=== PATIENT | female | born 1990 | race African-American/Black ===

== ENCOUNTER 2024-10-06 08:08 | Outpatient (AMB) | payer OTHER, SELFPAY ==
[2024-10-06 08:12] VITALS: BP 154/102; PULSE 81; RESP 18; TEMP 36.3; O2SAT 99; BMI 35.8
--- NOTE | 2024-10-06 08:12 | MHC.PC.OV ---
Vital Signs 10/06/24 08:12 10/06/24 09:02 Height 5 ft 4.5 in Weight 211 lb 9.6 oz BMI 35.8 BP 154/102 H 140/88 H Blood Pressure Location Lt brachial Lt brachial Position Sitting Sitting Respiration 18 Pulse 81 Pulse Source Pulse Oximeter Temp 97.3 F Temp Source Temporal Artery Scan Pulse Oximetry (%) 99 Oxygen Delivery Method Room Air Intake Visit Reasons: establish care Intake Note: Patient is a new patient here to establish care. Transferring care from [facility] in [place], [place]. Medical records have been requested and have not been received. Sole Trimmer Required: No Accompanied by: Self / Same As Patient Allergies No Known Allergies Allergy (Verified 10/06/24 08:29) Medication List - Last Reconciled 10/06/24 by Jelena Fletcher PA-C amlodipine 10 mg PO DAILY hydrochlorothiazide 25 mg PO DAILY Tobacco use date assessed: 10/06/24 Dental Screening Dental Screen Date: 10/06/24 Did you have a dental visit in the last 12 months?: Yes Did you have a dental problem in the last 6 months where you did not have access to dental care?: No Was dental information given to patient?: Patient has dentist HPI establish care HPI Details 34-year-old female coming to the office for the 1st time. Presenting with concerns regarding her essential hypertension management due to disrupted follow-up appointments. She is prescribed amlodipine and hydrochlorothiazide and notes high blood pressure when her regimen is not strictly followed. She continues to consume tobacco, providing a quarter pack a day, despite desiring cessation. Insomnia is noted as a persistent issue, unalleviated by current vtto-joh-zztaoxr pharmacotherapy. The condition is potentially contributing to her elevated blood pressure readings. The patient's body mass index reflects her concerns regarding weight gain, related in part to a prior history of Depo-Provera usage. She wishes to engage in nutritional counseling to aid in her goals of weight reduction. The patient screens positive for depression, attributing this to multiple economic stressors as a single parent. She intends to explore therapeutic options moving forward. [facility] Jul 2023 every 3 years due to Fhx and polyps through [facility] Surgical History Hx of wisdom tooth extraction Hx of section Family History Mother Colon cancer FHx: colon cancer Father No problems noted. Son No problems noted. Daughter No problems noted. 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 1. Little interest or pleasure in doing things: several days 2. Feeling down, depressed, or hopeless: not at all 3. Trouble falling or staying asleep, or sleeping too much: nearly every day 4. Feeling tired or having little energy: several days 5. Poor appetite or overeating: nearly every day 6. Feeling bad about yourself - or that you are a failure or have let yourself or your family down: several days 7. Trouble concentrating on things, such as reading the newspaper or watching television: not at all 8. Moving or speaking so slowly that other people could have noticed. Or the opposite - being so fidgety or restless that you have been moving around a lot more than usual: not at all 9. Thoughts that you would be better off or of hurting yourself in some way: not at all Total score: 9 Depression Screening Interpretation: Positive (referral to counseling) Depression Screening Follow-up: Existing condition Depression Screening Done: Yes 35940 - PHQ-9 Billing: Yes Source: Developed by Drs. Yobany Corbin, Melisa Damian, Anoop Reardon and colleagues, with an educational nelly from [employer]. Thrive Questionnaire Date Thrive assessed: 10/06/24 I am a: Patient What is your living situation today?: I have a steady place to live Within the past 12 months, did the food you bought not last and you didn't have the money to get more?: Never true Within the past 12 months, did you worry whether your food would run out before you got money to buy more?: Never true Do you have trouble paying for medicines?: No Do you have trouble getting transportation to medical appointments?: No Do you have trouble paying your heating and electricity bill?: No Do you have trouble taking care of your child, family member or friend?: No Do you have trouble with day-to-day activities such as bathing, preparing meals, shopping, managing finances, etc.?: No Are you currently unemployed and looking for a job?: No Are you interested in more education?: No Please select the resources that you would like help with: None Currently or been in a relationship where the following occur: No concerns reported THRIVE Score: 0 AUDIT C Alcohol Use Questionnaire (AUDIT-C) 1. How often do you have a drink containing alcohol?: 2-3 times a week 2. How many drinks containing alcohol do you have on a typical day when you are drinking?: 5 or 6 3. How often do you have six or more drinks on one occasion?: Less than monthly Total Score: 6 Score Reviewed/Action Taken: Yes KERRI-7 AMB Questionnaire KERRI-7 Date KERRI - 7 assessed: 10/06/24 Feeling nervous, anxious, or on edge: 0 = Not at all Not being able to stop or control worryin = Nearly every day Worrying too much about different things: 3 = Nearly every day Trouble relaxin = Nearly every day Being so restless that it is hard to sit still: 0 = Not at all Becoming easily annoyed or irritable: 0 = Not at all Feeling afraid as if something awful might happen: 0 = Not at all Total KERRI-7 score (0-4 normal; 5-9 mild; 10-14 moderate; 15-21 severe): 9 Source: Developed by Drs. Yobany Corbin, Melisa Damian, Anoop Reardon and colleagues, with an educational nelly from [employer]. KERRI-7 Assessment Billing KERRI-7 Assessment Tool: KERRI-7 Assessment 60128 Review of Systems Const Details: insomnia Denies body aches, Denies chills, Denies fever(s), Reports headache(s) and Denies poor appetite Eyes Reports no additional complaints ENT Denies dizziness and Reports headache(s) Card Denies chest pain, Denies syncope, Denies lightheadedness and Denies dyspnea Resp Denies cough and Denies dyspnea GI Denies diarrhea, Denies nausea and Denies vomiting Reports no additional complaints Musc Reports no additional complaints Skin/Breast Reports system reviewed and no additional complaints, except as documented Neuro Denies dizziness, Denies syncope and Reports headache(s) Psych Reports no additional complaints Physical exam (Primary Care) Vital Signs: Last Vital Signs Temp 97.3 F 10/06/24 08:12 Pulse 81 10/06/24 08:12 Resp 18 10/06/24 08:12 BP 140/88 H 10/06/24 09:02 Pulse Ox 99 10/06/24 08:12 Oxygen Delivery Method Room Air 10/06/24 08:12 BMI result Body Mass Index 35.8 Tobacco/Smoking Status: Tobacco use Status Tobacco use date assessed 10/06/24 10/06/24 08:31 Patient Tobacco Use Status Current everyday Tobacco 10/06/24 08:31 Tobacco use type Cigarette 10/06/24 08:31 e-Cigarette/Vaping Use Currently Using (THC Vape) 10/06/24 08:31 Are you ready to quit: Yes Tobacco cessation counseling provided: Yes Items discussed: Nicotine replacement Relapse Prevention: weight gain after smoking is common and discussed dietary, exercise and/or lifestyle changes Number of minutes spent counselin CPT code: 67864 - 4-10 Minutes PHQ-9: PHQ-9 Score PHQ-9: Total score 9 10/06/24 08:48 Depression Screening Interpretation: Positive (referral to counseling) Depression Screening Follow-up: Existing condition Thrive Assessment: Date of Thrive Assessment Date Thrive assessed 10/06/24 10/06/24 08:39 Currently or been in a relationship where the following occur: No concerns reported Const General: cooperative, healthy appearing, comfortable and no acute distress Orientation/consciousness: patient oriented x3 HENMT Head: Yes normocephalic Ears: hearing grossly normal bilaterally General nose exam: Normal external nose present Eyes General: appearance normal, both eyes and all related structures Conjunctivae: conjunctivae normal Neck Neck: Yes full ROM and Yes no lymphadenopathy Resp Effort & Inspection: normal respiratory effort Auscultation: clear to auscultation bilaterally, no crackles, no rales, no rhonchi and no wheezes Cardio Rate: regular rate Rhythm: regular rhythm Skin General skin exam: no rashes or lesions noted Neuro General: patient oriented x3 Gait exam (Neuro): Normal gait present Extrem General: Yes normal to inspection, Yes full ROM and No edema Psych Affect: normal affect Attitude: cooperative Insight: Good insight present (Psych) Judgement: Good judgement present (Psych) Coding Level of Care Code New Pt Level 4 (78792) Diagnoses Tobacco use disorder F17.200 Hypertension I10 Cervical cancer screening Z12.4 Anxiety F41.9 Depression F32.A Insomnia G47.00 Obesity (BMI 30-39.9) E66.9 Additional Codes KERRI-7 Assessment Billing - KERRI-7 Assessment Tool: KERRI-7 Assessment 66485 ([id number]) PHQ-9 - 44993 - PHQ-9 Billing: Yes ([id number]) Vital Signs *Quality* - CPT code: 26476 - 4-10 Minutes ([id number]) Assessment & Plan Assessment & Plan (1) Tobacco use disorder: Code(s): F17.200 - Nicotine dependence, unspecified, uncomplicated Category: Medical Plan: Smoking cigarettes and the use of tobacco can be harmful. We discussed the importance of stopping and options to aid in smoking cessation. Prescription sent for nicotine lozenges today (2) Hypertension: Code(s): I10 - Essential (primary) hypertension Category: Medical Plan: Continue on current blood pressure medication. Avoid salt intake and encourage healthy diet and regular exercise. Blood pressure mildly elevated in the office today 140/88 when retaken patient has not yet taken her blood pressure medications. Advised to follow up in 2 months and bring log to next visit of blood pressures at home. Also advised patient to reach out if blood pressures exceed 140/90 at home (3) Cervical cancer screening: Comment: [facility] past Code(s): Z12.4 - Encounter for screening for malignant neoplasm of cervix Category: Medical Plan: Patient has been [facility] and believes she is up-to-date. Referral was placed to gynecology today (4) Anxiety: Code(s): F41.9 - Anxiety disorder, unspecified Category: Medical Plan: Patient is declining medical management at this time and would like to try counseling. She has tried counseling in the past but did find it difficult to attend as she had financial restraints. (5) Depression: Code(s): F32.A - Depression, unspecified Category: Medical Plan: Patient is declining medical management at this time and would like to try counseling. She has tried counseling in the past but did find it difficult to attend as she had financial restraints. (6) Insomnia: Code(s): G47.00 - Insomnia, unspecified Category: Medical Plan: Patient having difficulty sleeping she has been using Tylenol PM plan to initiate hydroxyzine 25 mg at bedtime. Follow up in 2 months (7) Obesity (BMI 30-39.9): Code(s): E66.9 - Obesity, unspecified Category: Medical Plan: Healthy diet and regular exercise is encouraged. Patient was counseled today on the risks and benefits of GLP-1 injections as well as the dosing schedule. She has no family history or personal history of thyroid disease and no gallbladder disease. Discussed with the patient the potential GI side effects of this medication. Plan to have repeat blood work after one month of therapy to monitor kidney and liver function before increasing the dose of this medication. Follow up in 2 months for a weight check. Referral was sent to nutrition today and Kranthi sent to pharmacy. Advised patient if the medication is not covered by her insurance we will seek the nutritional route and can consider referral to weight management. She is not interested in weight loss surgery at this time Plan The patient's essential hypertension will continue to be managed with her existing regimen of amlodipine and hydrochlorothiazide, with potential adjustments following home blood pressure monitoring feedback. To support her intention to quit smoking, a regimen of 4 mg nicotine lozenges has been provided. Hydroxyzine 25 mg will be employed to manage sleep disturbances and adjunctively moderate anxiety manifestations. Nutritional counseling referrals have been made to facilitate weight management, complemented by potential pharmacotherapy should insurance permit its integration. The patient's mental health, particularly her depression, warrants a continued dialogue about therapeutic options, both therapeutic and pharmacological, as we navigate her insurance constraints. I also ordered for updated blood work and plan to follow up in 2 months. This note was constructed using voice recognition software. While every effort has been made to ensure accuracy and rehab care assistant, still areas may have been included sometimes these areas may affect the content or meeting of the given symptoms. Total time spent caring for the patient today was 30 minutes. This includes time spent before the visit reviewing the chart, time spent during the visit, and time spent after the visit and documentation. Patient was informed and verbally consented to the use of an ambient scribe for clinic note documentation during this visit. Orders: Orders Comprehensive Met. Panel Today Z00.00 - Encounter for general adult medical examination without abnormal findings Free T4 (Free Thyroxine) Today Z00.00 - Encounter for general adult medical examination without abnormal findings TSH reflex Free T4 Today Z00.00 - Encounter for general adult medical examination without abnormal findings Vitamin D 25-OH Total Today Z00.00 - Encounter for general adult medical examination without abnormal findings Lipid Panel Today Z13.220 - Encounter for screening for lipoid disorders Complete Blood Count Auto Diff Today Z00.00 - Encounter for general adult medical examination without abnormal findings Vitamin B12 and Folate Today Z00.00 - Encounter for general adult medical examination without abnormal findings Referrals OPTICAL STORE MANAGER Referral Z12.4 - Encounter for screening for malignant neoplasm of cervix Counseling Referral F32.A - Depression, unspecified, F41.9 - Anxiety disorder, unspecified Nutrition/Dietitian Referral E66.9 - Obesity, unspecified, I10 - Essential (primary) hypertension Medications: New nicotine (polacrilex) 4 mg buccal Q8H PRN 72 ea 1RF nicotine cravings amlodipine 10 mg PO DAILY 90 tabs 2RF hydrochlorothiazide 25 mg PO DAILY 90 tabs 2RF hydroxyzine HCl 25 mg PO BEDTIME 30 tabs 1RF semaglutide (weight loss) (Kranthi) administer weeks 1 through 4 of therapy 0.25 mg (0.5 mL) subcut QWEEK 2 mL 0RF
--- OUTSIDE RECORDS SUMMARY | 2024-10-06 08:22 | XMS_ITS | Patient Health Record ---
Author Organization [facility] Address [address] [place] [address] Care Team Providers Care Associate Merchandiser Name Role Phone Tano Nguyen Unavailable [phone] Allergies No Known Allergies Reason For Referral No Information Social History Tobacco Use: Social History Observation Description Date Details (start date - stop date) Current Smoker 06/22/2005 - NA Tobacco Use/Smoking Question Answer Notes Are you a: current smoker When did you start smoking? 06/22/2005 Alcohol Screen Question Answer Notes Did you have a drink contain ing alcohol in the past year? Yes How often did you have a dri nk containing alcohol in the past year? 2 to 4 times a month (2 points) Points 2 Interpretation Negative Tobacco use other than smoking: Question Answer Notes Are you an other tobacco user? No Plan Of Treatment Pending Test Test Name Order Date X ray : Foot, left 3V 05/23/2021 Insurance Providers Payer Name Payer Address Payer Phone Subscriber Number Group Number Insured Name Patient Relationship to Insured Coverage Start Date Coverage End Date [facility] [address] [facility] [place] [address] [id number] Randall Bhandari Self - patient is the insured Medical (General) History Medical History History ICD Code Chicken pox Surgical History Surgery Date(Month/Year) 05/08/09 11/27/15
[2024-10-06 09:02] VITALS: BP 140/88
== END 2024-10-06 09:08 | disposition home or self-care (01) ==
DX: I10 Essential (primary) hypertension (principal); F17.210 Nicotine dependence, cigarettes, uncomplicated; E66.9 Obesity, unspecified; Z68.35 Body mass index [BMI] 35.0-35.9, adult; F41.9 Anxiety disorder, unspecified; F32.A Depression, unspecified; G47.00 Insomnia, unspecified

== ENCOUNTER → 2024-10-06 08:08 | Outpatient (BNVA) | payer OTHER, SELFPAY | DX: I10 Essential (primary) hypertension (principal); F41.9 Anxiety disorder, unspecified; F32.A Depression, unspecified; G47.00 Insomnia, unspecified; E66.9 Obesity, unspecified; Z68.35 Body mass index [BMI] 35.0-35.9, adult; F17.210 Nicotine dependence, cigarettes, uncomplicated | CPT/HCPCS: 96127 ==

== ENCOUNTER 2024-11-23 12:27 | Outpatient (AMB) | payer OTHER, SELFPAY ==
[2024-11-23 12:41] VITALS: BMI 34.8
--- NOTE | 2024-11-23 12:41 | A.OFFVIS_ITS ---
VS Expanded 11/23/24 12:41 11/23/24 12:48 Height 5 ft 4.5 in 5 ft 4 in Weight 205 lb 14.588 oz 206 lb BMI 34.8 35.4 Intake Visit Reasons: Obesity, unspecified Allergies No Known Allergies Allergy (Verified 10/06/24 08:29) Nutrition Presentation Details: Pt presents for MNT for obesity Pt reports gradually working on meal planning food frequency fruits: 0-1/d dairy: 1-2/d ve-4 x/wk fish : 0-1/wk fried foods: 0-1/wk beverages: water/tea/juice etoh/smoking denies physical activity : ADL BS Monitoring Most Recent Diabetes Results: Cholesterol 132 mg/dL (<200) 12/02/24 HDL Cholesterol 37 mg/dL (>40) L 12/02/24 Triglycerides 83 mg/dL (<150) 12/02/24 Creatinine 0.68 mg/dL (0.5-1.4) 12/02/24 Blood Urea Nitrogen 8 mg/dL (9-16) L 12/02/24 Sodium 139 mmol/L (135-145) 12/02/24 Potassium 3.8 mmol/L (3.3-5.1) 12/02/24 Chloride 110 mmol/L (96-108) H 12/02/24 Carbon Dioxide 25 mmol/L (22-29) 12/02/24 Calcium 9.0 mg/dL (8.4-10.2) 12/02/24 AST 26 U/L (5-31) 12/02/24 ALT 25 U/L (0-31) 12/02/24 Total Protein 7.2 g/dL (6.5-8.0) 12/02/24 Albumin 4.5 g/dL (3.5-5.0) 12/02/24 SYD-Tmlbwmz-Iu.Jeor Equation Height: 5 ft 4 in Weight: 206 lb Resting Metabolic Rate: 1621.19 Calculated Activity Level: Sedentary Calories Needed to Maintain Weight: 1945.43 Diagnosis Nutrition problem #1: overweight/obesity As related to (etiology) #1: diagnosis As evidenced by (sign/symptom) #1: high BMI (35.4 on 11/2024) [facility] Surgical History Hx of wisdom tooth extraction Hx of section Family History Mother Colon cancer FHx: colon cancer Father No problems noted. Son No problems noted. Daughter No problems noted. 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 [employer] Cognitive needs: No Hearing needs: No Vision needs: Yes (Glasses) Female Reproductive History Menstrual Age of Menarche: 14 Assessment & Plan Assessment & Plan (1) Obesity (BMI 30-39.9): Code(s): E66.9 - Obesity, unspecified Category: Medical Plan: Wt: 94kg Kg ( 12/14 ) Est kcal needs as per MSJ: 1900 (40% carb, 30% protein/fat) Est fluid needs as per 25-30 ml/d: 2800 Est prot per day as per 1 g/kg bw: 90 Recommend fiber intake : 8-10 g per day and gradually increase to 25-28 g per day for women and 35-38 g for men or as tolerated Recommend sodium intake per day: less than 2000 mg Educated patient on: ( R = reviewed V = verbalizes understanding N/R = needs review N/A = not applicable * Food sources of carbohydrate, adequate serving sizes and its role in various health conditions: R * Differences between complex carbohydrates a simple carbohydrates, role of fiber in diet: R V N/R * Lean protein sources of foods: R * Differences between types of fats and role in diet (mono on saturated fat fatty acids, saturated fatty acids, trans fats): R * Food sources of sodium in salt and healthy modifications for heart health in kidney health: R V R/V * Vitamins and minerals: R V N/R * Healthy plate method concept: R * Physical activity: Benefits a precaution: R V N/R * Patient Instructions: Practice mindful eating Work on having 3 meals/day following helathy plate method, reducing carbs to less 60 g per meal Choose water , low sugar beverages Coding Level of Care Code Nutr Indiv Intake (64162) Diagnoses Obesity (BMI 30-39.9) E66.9 Time Spent (min) 30
--- OUTSIDE RECORDS SUMMARY | 2024-11-23 13:01 | XMS_ITS | Patient Health Record ---
Author Organization [facility] Address [address] [place] [address] Care Team Providers Care Developer Relations Manager Name Role Phone Tano Nguyen Unavailable [phone] Allergies No Known Allergies Reason For Referral [...] Insured Coverage Start Date Coverage End Date [facility] [address] [place] [address] [id number] Randall Bhandari Self - patient is the insured Medical (General) History Medical History History ICD Code Chicken pox Surgical History Surgery Date(Month/Year) 05/08/09 11/27/15
[2024-12-05 09:04] VITALS: BMI 35.4
== END 2024-11-23 13:21 | disposition home or self-care (01) ==
LOC: HO.ENCR 12:29
PROVIDERS: Visit Provider Dietitian, Registered
DX: E66.9 Obesity, unspecified (principal)

== ENCOUNTER → 2024-11-23 12:27 | Outpatient (BNVA) | payer OTHER, SELFPAY | PROVIDERS: Visit Provider Dietitian, Registered | DX: E66.9 Obesity, unspecified (principal); Z68.35 Body mass index [BMI] 35.0-35.9, adult; Z71.3 Dietary counseling and surveillance | CPT/HCPCS: 97802 ==

== ENCOUNTER 2024-12-02 08:13 | Outpatient (REF) | payer OTHER, SELFPAY ==
--- OUTSIDE RECORDS SUMMARY | 2024-12-02 08:19 | XMS_ITS | Patient Health Record ---
Author Organization [facility] Address [address] [place] [address] Care Team Providers Care Business Info Consultant Name Role Phone Tano Nguyen Unavailable [phone] Allergies No Known Allergies Reason For Referral [...] Insured Coverage Start Date Coverage End Date [facility] [address] [place] [address] [id number] Randall Bhandari Self - patient is the insured Medical (General) History Medical History History ICD Code Chicken pox Surgical History Surgery Date(Month/Year) 05/08/09 11/27/15
[2024-12-02 08:26] LABS: MANUAL DIFF FLAG NO
[2024-12-02 08:46] LABS: Basophils Percent Auto 0.2 % (0-2); Eosinophils Absolute Auto 0.1 X10*3/uL (0.0-0.4); Eosinophils Percent Auto 1.2 % (0-4); Hematocrit 34.6 % (37.0-47.0); Hemoglobin 11.6 g/dl (12.0-16.0); Imm Gran Abs Auto 0.03 X10*3/uL (0.00-0.03); Imm Gran Pct Auto 0.5 % (0.0-0.4); Lymphocytes Percent Auto 33.4 % (20-40); Mean Corpuscular HGB Conc 33.5 g/dl (31.0-35.0); Mean Corpuscular Hemoglobin 28.5 pg (27.0-33.0); Mean Platelet Volume 8.5 fL (9.4-12.3); Monocytes Absolute Auto 0.5 X10*3/uL (0.1-1.2); Monocytes Percent Auto 7.7 % (2-11); Neutrophils Absolute Auto 3.3 x10*3/uL (2.0-8.3); Platelet Count 390 X10*3/uL (160-400); Red Blood Count 4.07 X10*6/uL (4.20-5.50); Red Cell Distribution Width 14.4 % (11.0-16.0); White Blood Count 5.8 X10*3/uL (4.8-10.8)
[2024-12-02 09:21] LABS: Alanine Aminotransferase 25 U/L (0-31); Albumin Level 4.5 g/dL (3.5-5.0); Alkaline Phosphatase 67 U/L (39-117); Anion Gap 8 (12-20); Aspartate Amino Transferase 26 U/L (5-31); Bilirubin Total 0.3 mg/dL (0.0-1.0); Blood Urea Nitrogen 8 mg/dL (9-16); Carbon Dioxide 25 mmol/L (22-29); Chloride 110 mmol/L (96-108); Cholesterol 132 mg/dL (<200); Estimated Glomerular Filt Rate > 60; Glucose Random 97 mg/dL (60-115); HDL Cholesterol 37 mg/dL (>40); LDL Cholesterol Calculated 79 mg/dL (<100); Potassium 3.8 mmol/L (3.3-5.1); Sodium 139 mmol/L (135-145); Total Protein 7.2 g/dL (6.5-8.0); Triglycerides 83 mg/dL (<150)
[2024-12-02 09:40] LABS: Free T4 (Free Thyroxine) 1.06 ng/dL (0.71-1.85); TSH reflex Free T4 0.18 uIU/mL (0.32-4.0); Vitamin D 25-OH Total 8.7 ng/mL (>30)
[2024-12-02 09:42] LABS: Folate 3.7 ng/mL (> or = 4.0); Vitamin B12 544 pg/mL (200-900)
== END 2024-12-02 08:14 | disposition home or self-care (01) ==
LOC: HO.LAB 08:13
DX: Z00.00 Encounter for general adult medical examination without abnormal findings (principal); Z13.220 Encounter for screening for lipoid disorders; Z13.6 Encounter for screening for cardiovascular disorders
CPT/HCPCS: 36415; 80053; 80061; 82306; 82607; 82746; 84439; 84443; 85025

== ENCOUNTER 2024-12-06 09:46 | Outpatient (AMB) | payer OTHER, SELFPAY ==
--- NOTE | 2024-12-06 10:01 | MHC.PC.OV ---
Vital Signs 12/06/24 10:02 12/06/24 10:31 Height 5 ft 4 in Weight 207 lb 2 oz BMI 35.5 BP 160/90 H 142/98 H Blood Pressure Location Lt brachial Lt brachial Position Sitting Sitting Pulse 90 Pulse Source Pulse Oximeter Temp 97.3 F Temp Source Temporal Artery Scan Pulse Oximetry (%) 98 Oxygen Delivery Method Room Air Intake Visit Reasons: f/u HTN and blood work Intake Note: Patient is here to follow up on HTN, Blood work results. Complex Director Required: No It Business Systems Analyst: Not Required per policy Accompanied by: Self / Same As Patient Allergies No Known Allergies Allergy (Verified 12/06/24 10:02) Medication List - Last Reconciled 12/06/24 by Jelena Fletcher PA-C amlodipine 10 mg PO DAILY hydrochlorothiazide 25 mg PO DAILY hydroxyzine HCl 25 mg PO BEDTIME nicotine (polacrilex) 4 mg buccal Q8H PRN semaglutide (weight loss) (Wegovy) 0.5 mg subcut QWEEK Tobacco use date assessed: 12/06/24 Dental Screening Dental Screen Date: 10/06/24 HPI f/u HTN and blood work HPI Details 34 year old female with past history of hypertension, tobacco use disorder, depression, anxiety, insomnia and obesity last seen 09/2024 coming in for follow up. In review of the notes, patient was seen by banbury mill operator 11/2024. Presenting with high blood pressure management. Reports a history of elevated blood pressure readings, with systolic values often in the 140s and diastolic values consistently above 80, sometimes reaching 90. On maximum doses of amlodipine and hydrochlorothiazide for approximately two years, with no significant improvement in blood pressure control. Subclinical hyperthyroidism, indicated by low thyroid-stimulating hormone levels, though thyroid hormone levels remain normal. Smokes approximately three cigarettes a day, primarily in the morning, and acknowledges the impact of smoking on her blood pressure. Actively managing weight, having lost 4 pounds since the last visit, and using Wegovy to aid in weight loss. PFSH Surgical History Hx of wisdom tooth extraction Hx of section Family History Mother Colon cancer FHx: colon cancer Father No problems noted. Son No problems noted. Daughter No problems noted. 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 1. Little interest or pleasure in doing things: not at all 2. Feeling down, depressed, or hopeless: not at all 3. Trouble falling or staying asleep, or sleeping too much: not at all 4. Feeling tired or having little energy: not at all 5. Poor appetite or overeating: not at all 6. Feeling bad about yourself - or that you are a failure or have let yourself or your family down: not at all 7. Trouble concentrating on things, such as reading the newspaper or watching television: not at all 8. Moving or speaking so slowly that other people could have noticed. Or the opposite - being so fidgety or restless that you have been moving around a lot more than usual: not at all 9. Thoughts that you would be better off or of hurting yourself in some way: not at all Total score: 0 Depression Screening Interpretation: Negative Depression Screening Done: Yes Source: Developed by Drs. Yobany Corbin, Melisa Damian, Anoop Reardon and colleagues, with an educational nelly from [employer]. Thrive Questionnaire Date Thrive assessed: 10/06/24 I am a: Patient What is your living situation today?: I have a steady place to live Within the past 12 months, did the food you bought not last and you didn't have the money to get more?: Never true Within the past 12 months, did you worry whether your food would run out before you got money to buy more?: I choose not to answer this question Do you have trouble paying for medicines?: No Do you have trouble getting transportation to medical appointments?: No Do you have trouble paying your heating and electricity bill?: No Do you have trouble taking care of your child, family member or friend?: No Do you have trouble with day-to-day activities such as bathing, preparing meals, shopping, managing finances, etc.?: No Are you currently unemployed and looking for a job?: No Are you interested in more education?: No Please select the resources that you would like help with: None Currently or been in a relationship where the following occur: No concerns reported THRIVE Score: 0 AUDIT C Alcohol Use Questionnaire (AUDIT-C) 1. How often do you have a drink containing alcohol?: 2-4 times a month 2. How many drinks containing alcohol do you have on a typical day when you are drinking?: 3 or 4 3. How often do you have six or more drinks on one occasion?: Monthly Total Score: 5 Score Reviewed/Action Taken: Yes KERRI-7 AMB Questionnaire KERRI-7 Date KERRI - 7 assessed: 10/06/24 Feeling nervous, anxious, or on edge: 0 = Not at all Not being able to stop or control worryin = Not at all Worrying too much about different things: 0 = Not at all Trouble relaxin = Not at all Being so restless that it is hard to sit still: 0 = Not at all Becoming easily annoyed or irritable: 0 = Not at all Feeling afraid as if something awful might happen: 0 = Not at all Total KERRI-7 score (0-4 normal; 5-9 mild; 10-14 moderate; 15-21 severe): 0 Source: Developed by Drs. Yobany Corbin, Melisa Damian, Anoop Reardon and colleagues, with an educational nelly from [employer]. Review of Systems Const Denies body aches, Denies chills, Denies fever(s), Denies headache(s) and Denies poor appetite Eyes Reports no additional complaints ENT Denies dysphagia, Denies dizziness, Denies headache(s) and Denies odynophagia Card Denies chest pain, Denies syncope, Denies edema, Denies irregular heart rhythm, Denies lightheadedness and Denies dyspnea Resp Denies cough and Denies dyspnea GI Denies abdominal pain, Denies constipation, Denies dysphagia, Denies diarrhea, Denies nausea, Denies odynophagia and Denies vomiting Reports no additional complaints Musc Reports no additional complaints and Denies abnormal gait Skin/Breast Reports system reviewed and no additional complaints, except as documented Neuro Denies abnormal gait, Denies dizziness, Denies syncope and Denies headache(s) Psych Reports no additional complaints Physical exam (Primary Care) Vital Signs: Last Vital Signs Temp 97.3 F 12/06/24 10:02 Pulse 90 12/06/24 10:02 BP 142/98 H 12/06/24 10:31 Pulse Ox 98 12/06/24 10:02 Oxygen Delivery Method Room Air 12/06/24 10:02 BMI result Body Mass Index 35.5 Tobacco/Smoking Status: Tobacco use Status Tobacco use date assessed 12/06/24 12/06/24 10:06 Patient Tobacco Use Status Current everyday Tobacco 12/06/24 10:06 Tobacco use type Cigarette 12/06/24 10:06 e-Cigarette/Vaping Use Former Use (THC Vape) 12/06/24 10:06 PHQ-9: PHQ-9 Score PHQ-9: Total score 0 12/06/24 10:06 Depression Screening Interpretation: Negative Thrive Assessment: Date of Thrive Assessment Date Thrive assessed 10/06/24 12/06/24 10:06 Currently or been in a relationship where the following occur: No concerns reported Const General: cooperative, healthy appearing, comfortable and no acute distress Orientation/consciousness: patient oriented x3 [facility] Head: Yes normocephalic Ears: hearing grossly normal bilaterally General nose exam: Normal external nose present Eyes General: appearance normal, both eyes and all related structures Conjunctivae: conjunctivae normal Neck Neck: Yes full ROM and Yes no lymphadenopathy Resp Effort & Inspection: normal respiratory effort Auscultation: clear to auscultation bilaterally, no crackles, no rales, no rhonchi and no wheezes Cardio Rate: regular rate Rhythm: regular rhythm Skin General skin exam: no rashes or lesions noted Neuro General: patient oriented x3 Gait exam (Neuro): Normal gait present Extrem General: Yes normal to inspection, Yes full ROM and No edema Psych Affect: normal affect Attitude: cooperative Insight: Good insight present (Psych) Judgement: Good judgement present (Psych) Coding Level of Care Code Luli Pt Level 3 (14653) Diagnoses Tobacco use disorder F17.200 Hypertension I10 Insomnia G47.00 Obesity (BMI 30-39.9) E66.9 Low TSH level R79.89 Folate deficiency E53.8 Vitamin D deficiency E55.9 Assessment & Plan Assessment & Plan (1) Tobacco use disorder: Code(s): F17.200 - Nicotine dependence, unspecified, uncomplicated Category: Medical Plan: Smoking cigarettes and the use of tobacco can be harmful. We discussed the importance of stopping and options to aid in smoking cessation. Prescription sent for nicotine lozenges at last visit and patient has significantly decreased the amount she has been smoking. (2) Hypertension: Code(s): I10 - Essential (primary) hypertension Category: Medical Plan: Continue on current blood pressure medication. Avoid salt intake and encourage healthy diet and regular exercise. Blood pressure elevated today 142/98. She states her blood pressures at home have been elevated as well and does not have the logs to review today. Plan to add losartan to medication regimen. Consider renal ultrasound if blood pressure remains uncontrolled. Discussed with patient if blood pressure remains elevated over 140/90 at home to reach out to the office (3) Insomnia: Code(s): G47.00 - Insomnia, unspecified Category: Medical Plan: Patient having difficulty sleeping she has been using hydroxyzine 25 mg at bedtime with good benefit. (4) Obesity (BMI 30-39.9): Code(s): E66.9 - Obesity, unspecified Category: Medical Plan: Healthy diet and regular exercise is encouraged. Patient is currently following with nutrition noted for lb weight loss since last visit. Has been on Wegovy 0.25 mg and increase dose .5 mg was sent to pharmacy. (5) Low TSH level: Code(s): R79.89 - Other specified abnormal findings of blood chemistry Category: Medical Plan: Patient having subclinical hyperthyroidism plan to repeat labs in 1 month. (6) Folate deficiency: Code(s): E53.8 - Deficiency of other specified B group vitamins Category: Medical Plan: Recommend [id number] supplementation. (7) Vitamin D deficiency: Code(s): E55.9 - Vitamin D deficiency, unspecified Category: Medical Plan: Recommend [id number] supplementation. Plan The patient will continue with the current antihypertensive regimen, and losartan will be added to better manage her blood pressure. A kidney ultrasound is considered if blood pressure remains uncontrolled despite the addition of losartan, to evaluate for possible renal artery stenosis. Smoking cessation is encouraged, and dietary modifications are advised to reduce salt intake and improve overall cardiovascular health. The patient is advised to continue with Wegovy for weight management, with a gradual increase in dosage as planned. Regular follow-up appointments are scheduled to monitor weight loss progress and ensure compliance with the medication regimen. Vitamin D and folate supplementation are recommended to address deficiencies, and a multivitamin is suggested for overall nutritional support. The patient's thyroid function will be monitored, with repeat testing planned to assess any changes in thyroid-stimulating hormone levels. The patient is advised to report any symptoms suggestive of hyperthyroidism, such as palpitations or unexplained weight loss. Follow-up appointments are scheduled to reassess blood pressure control and overall health status. This note was constructed using voice recognition software. While every effort has been made to ensure accuracy and electric distribution engineer, still areas may have been included sometimes these areas may affect the content or meeting of the given symptoms. Total time spent caring for the patient today was 20 minutes. This includes time spent before the visit reviewing the chart, time spent during the visit, and time spent after the visit and documentation. Patient was informed and verbally consented to the use of an ambient scribe for clinic note documentation during this visit. Medications: New cholecalciferol (vitamin D3) 25 mcg PO DAILY 90 caps 3RF losartan 25 mg PO DAILY 30 tabs 2RF Discontinued semaglutide (weight loss) (Wegovy) Discontinued Reason: Patient no longer taking 1 mg (0.5 mL) subcut Q7D 2 mL 0RF
[2024-12-06 10:02] VITALS: BP 160/90; PULSE 90; TEMP 36.3; O2SAT 98; BMI 35.5
[2024-12-06 10:31] VITALS: BP 142/98
--- OUTSIDE RECORDS SUMMARY | 2024-12-06 10:50 | XMS_ITS | Patient Health Record ---
Author Organization [facility] Address [address] [place] [address] Care Team Providers Care Aircraft Hydraulic Equipment Mechanic Name Role Phone Tano Nguyen Unavailable [phone] Allergies No Known Allergies Reason For Referral [...] Insured Coverage Start Date Coverage End Date [facility] [address] [place] [address] [id number] Randall Bhandari Self - patient is the insured Medical (General) History Medical History History ICD Code Chicken pox Surgical History Surgery Date(Month/Year) 05/08/09 11/27/15
== END 2024-12-06 10:36 | disposition home or self-care (01) ==
LOC: HO.HMCH 09:47
DX: I10 Essential (primary) hypertension (principal); F17.200 Nicotine dependence, unspecified, uncomplicated; E66.9 Obesity, unspecified; Z68.35 Body mass index [BMI] 35.0-35.9, adult; G47.00 Insomnia, unspecified; R79.89 Other specified abnormal findings of blood chemistry; E53.8 Deficiency of other specified B group vitamins; E55.9 Vitamin D deficiency, unspecified

== ENCOUNTER → 2024-12-06 09:46 | Outpatient (BNVA) | payer OTHER, SELFPAY | DX: Z13.89 Encounter for screening for other disorder (principal) ==

== ENCOUNTER 2025-01-04 12:46 | Outpatient (AMB) | payer OTHER, SELFPAY ==
--- NOTE | 2025-01-04 13:11 | A.OFFVIS_ITS ---
VS Expanded 01/04/25 13:12 01/04/25 13:53 Height 5 ft 4 in 5 ft 4 in Weight 199 lb 4.766 oz 199 lb BMI 34.2 34.2 Intake Visit Reasons: Obesity Allergies No Known Allergies Allergy (Verified 12/06/24 10:02) Nutrition Presentation Details: Pt presents for MNT for obesity Pt is motivated, working on choosing protein rich foods and trying new foods Reports having a child with Pre DM so working on diet modifications for the family Pt on wegovy 1 mg/wk fluid: mainly water 40 oz /day fruits/day 1-2 vegetables: 3-4 times/wk eating out : 3-4 times /wk choosing lower fat options, including vegetables Brings a list of foods, choosing lower fat and protein rich foods , getting used to new flavors physical activity 2 times a week, treadmill 20 min ( uses stairs at home and walking further, mindfully increasing physical activity) reports taking a daily MVI and vitamin D supplement BS Monitoring Most Recent Diabetes Results: Cholesterol, (<200) 132 mg/dL 12/02/24 HDL Cholesterol, (>40) 37 mg/dL L 12/02/24 Triglycerides, (<150) 83 mg/dL 12/02/24 Creatinine, (0.5-1.4) 0.68 mg/dL 12/02/24 BUN, (9-16) 8 mg/dL L 12/02/24 Sodium, (135-145) 139 mmol/L 12/02/24 Potassium, (3.3-5.1) 3.8 mmol/L 12/02/24 Chloride, (96-108) 110 mmol/L H 12/02/24 Carbon Dioxide, (22-29) 25 mmol/L 12/02/24 Calcium, (8.4-10.2) 9.0 mg/dL 12/02/24 AST, (5-31) 26 U/L 12/02/24 ALT, (0-31) 25 U/L 12/02/24 Total Protein, (6.5-8.0) 7.2 g/dL 12/02/24 Albumin, (3.5-5.0) 4.5 g/dL 12/02/24 PUC-Cftryck-Bh.Jeor Equation Height: 5 ft 4 in Weight: 199 lb Resting Metabolic Rate: 1589.47 Calculated Activity Level: Sedentary Calories Needed to Maintain Weight: 1907.36 PFSH Surgical History Hx of wisdom tooth extraction Hx of section Family History Mother Colon cancer FHx: colon cancer Father No problems noted. Son No problems noted. Daughter No problems noted. 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 [employer] Cognitive needs: No Hearing needs: No Vision needs: Yes (Glasses) Female Reproductive History Menstrual Age of Menarche: 14 Assessment & Plan Assessment & Plan (1) Obesity (BMI 30-39.9): Code(s): E66.9 - Obesity, unspecified Category: Medical Plan: Wt: 94kg Kg ( 12/14 ), 90 kg (01/13) Est kcal needs as per MSJ: 1900 (40% carb, 30% protein/fat) Est fluid needs as per 25-30 ml/d: 2700 Est prot per day as per 1 g/kg bw: 90 Recommend fiber intake : 8-10 g per day and gradually increase to 25-28 g per day for women and 35-38 g for men or as tolerated Recommend sodium intake per day: less than 2300 mg Educated patient on: ( R = reviewed V = verbalizes understanding N/R = needs review N/A = not applicable * Food sources of carbohydrate, adequate serving sizes and its role in various health conditions: R * Differences between complex carbohydrates a simple carbohydrates, role of fiber in diet: R * Lean protein sources of foods: R * Differences between types of fats and role in diet (mono on saturated fat fatty acids, saturated fatty acids, trans fats): R * Food sources of sodium in salt and healthy modifications for heart health in kidney health: R V R/V * Vitamins and minerals: R (vit D, folate,iron) * Healthy plate method concept: R * Physical activity: Benefits a precaution: R * Patient Instructions: Gradually increase activity to 30 minutes 3 times a week Continue working on including at least 3 serving of calcium and vitamin D rich foods ( yogurt, 1 cup of milk, protein shake) Protein per day distributed throughout the day (80-90 g), including fiber rich foods :whole grains/veg/fruits 11 cups of fluid per day (water/diluted juices/milk,broth, low sugar teas) Coding Level of Care Code Nutr Indiv Subseq (53987) Diagnoses Obesity (BMI 30-39.9) E66.9 Time Spent (min) 30
[2025-01-04 13:12] VITALS: BMI 34.2
--- OUTSIDE RECORDS SUMMARY | 2025-01-04 13:41 | XMS_ITS | Encounter Summary ---
Author Organization [facility] Address [address] [place] [address] Care Team Providers Care Finish Production Manager Name Role Phone Sinai Stevens MD Primary Care Provider Un available Community, Pcp Primary Care Provider Unavailabl e Reason for Visit * Reason Onset Date Comments er follow up 02/24/2023 Encounter Details Date Type Department Care Team Description 02/24/2023 Telephone Adult Medicine - [address] [address] Sinai Stevens MD er follow up Social History Tobacco Use Types Packs/Day Years Used Date Smoking Tobacco: Every Day Smokeless Tobacco: Never Alcohol Use Standard Drinks/Week Comments Yes 0 (1 standard drink = 0.6 oz pur e alcohol) occ Sex Assigned at Date Recorded Not on file COVID-19 Exposure Response Date Recorded In the last 10 days, have yo u been in contact with someone who was confirmed or suspected to have Coronavirus/COVID-19? No / Unsure 02/27/2023 11:01 AM EDT documented as of this encounter Miscellaneous Notes * Telephone Encounter - Aleyda Carlisle M.A. - 02/26/2023 2:05 PM EDT Obtained records and were placed in providers inbox. * Telephone Encounter - Aleyda Carlisle M.A. - 02/26/2023 10:30 AM EDT Spoke to [facility] on [facility]. Patient will be faxing over medical notes from 02/20/2023 day pt was treated. * Telephone Encounter - Ivett Robb R.N. - 02/24/2023 11:32 AM EDT Called patient. States went to [facility] on [facility] on 02/20/23. Elevated BP was found incidentally while being examined for URI symptoms. Does not know the exact number Admits to Stress at home. No dizziness, headache, or vision issues Appt scheduled 02/27/23 Please obtain notes from [facility] for upcoming appt * Telephone Encounter - Maeve Javier - 02/24/2023 10:58 AM EDT Hospital follow up appointment needed [facility] patient was treated at: [address] Was this only an ER visit or was the patient admitted to the hospital? ER visit only Date of visit if ER visit only: 02/20/23 If patient was admitted what was the date of discharge? N/A Reason/diagnosis for visit or stay: ear clogged, UC concered about BP being high When was the patient told to follow up? [facility] Was visit or stay related to an injury? NO If yes, what was the date of injury (DOI)? N/A If yes, was the injury due to N/A documented in this encounter Plan of Treatment Not on file documented as of this encounter Visit Diagnoses Not on filedocumented in this encounter Care Teams Finish Production Manager Relationship Specialty Start Date End Date Sinai Stevens MD PCP - General Internal Medicine 02/24/2304/18 [facility], Pcp PCP - General Internal Medicine 04/19/24 documented as of this encounter
--- OUTSIDE RECORDS SUMMARY | 2025-01-04 13:41 | XMS_ITS | Patient Health Record ---
Author Organization [facility] Address [address] [place] [address] Care Team Providers Care Direct Mail Marketer Name Role Phone Tano Nguyen Unavailable [phone] Allergies No Known Allergies Reason For Referral [...] Insured Coverage Start Date Coverage End Date [facility] [address] [place] [address] [id number] Randall Bhandari Self - patient is the insured Medical (General) History Medical History History ICD Code Chicken pox Surgical History Surgery Date(Month/Year) 05/08/09 11/27/15
[2025-01-10 21:33] VITALS: BMI 34.2
== END 2025-01-04 13:36 | disposition home or self-care (01) ==
LOC: HO.ENCR 12:47
PROVIDERS: Visit Provider Dietitian, Registered
DX: E66.9 Obesity, unspecified (principal)

== ENCOUNTER → 2025-01-04 12:46 | Outpatient (BNVA) | payer OTHER, SELFPAY | PROVIDERS: Visit Provider Dietitian, Registered | DX: E66.9 Obesity, unspecified (principal); Z68.34 Body mass index [BMI] 34.0-34.9, adult | CPT/HCPCS: 97803 ==

== ENCOUNTER 2025-02-07 08:42 | Emergency (ER) | payer OTHER, SELFPAY ==
--- NOTE | ~2025-02-07 | US_ITS ---
EXAMINATION: US OBSTETRICAL ULTRASOUND CLINICAL INFORMATION: Right upper quadrant pain. Early . COMPARISON: None available. LMP: Unknown.. TECHNIQUE: Ultrasound of the maternal pelvis is performed using transabdominal transducer. M-mode Doppler is also performed. FINDINGS: There is a single intrauterine gestational sac with visible yolk sac, embryo/fetus, and cardiac activity. There is no significant subchorionic hemorrhage or hematoma. HR: 165 beats per minute. CRL (crown rump length): 1.94 cm (8 weeks, 4 days, +/- 4 days). SURJIT (estimated date of delivery): 09/15/2025 +/- 4 days. MATERNAL ADNEXA: The right maternal ovary measures 2.9 x 1.6 x 2.2 cm. Normal sonographic appearance. The left maternal ovary measures 2.9 x 2.1 x 2.4 cm. Normal sonographic appearance. There is no significant maternal adnexal mass. No maternal pelvic ascites. US/US OB <= 14 weeks fetus IMPRESSION: 1. Single intrauterine gestation with ultrasound gestational age of 8 weeks, 4 days, +/- 4 days. 2. Estimated date of delivery is 09/15/2025, +/- 4 days. 3. No maternal adnexal mass or pelvic ascites. Electronically signed by: Jayro Chirinos MD 02/07/2025 12:05 PM EDT
--- NOTE | ~2025-02-07 | US_ITS ---
EXAMINATION: US ABDOMEN LIMITED CLINICAL INFORMATION: Right upper quadrant pain. COMPARISON: None available. TECHNIQUE: Real-time imaging of the gallbladder bile ducts performed. FINDINGS: GALLBLADDER: There are gallstones present in the lumen of the gallbladder. There is echogenic bile present. No wall thickening or pericholecystic fluid. There was a positive sonographic Rebolledo's sign. COMMON BILE DUCT: Normal in caliber measuring 0.3 cm in diameter. FREE FLUID: None. US/US abdomen limited IMPRESSION: 1. No biliary dilatation. 2. Gravel size gallstones with echogenic bile intraluminally within the gallbladder. No wall thickening or pericholecystic fluid collection. There is a positive sonographic Rebolledo's sign. 3. No free fluid. Electronically signed by: Jayro Chirinos MD 02/07/2025 12:02 PM EDT
[2025-02-07 08:49] VITALS: BP 139/82; PULSE 100; RESP 18; TEMP 36.6; O2SAT 99; BMI 32.6
--- NOTE | 2025-02-07 10:21 | ED.ABDPAIN ---
HPI - Abdominal Pain General Chief Complaint: Abdominal Pain Stated Complaint: Abd pain, pt is Time Seen by Provider: 02/07/25 10:20 Source: patient and RN notes reviewed Mode of arrival: ambulatory Limitations: no limitations History of Present Illness ED Provider: Aleyda Larsen PA-C HPI narrative: This is a 34-year-old female, with a past medical history of hypertension, who presents emergency department with concerns of right upper quadrant pain which started at 5:00 a.m. this morning. Patient states that she was started on Wegovy for weight loss several months ago, states that several weeks ago she had an increase in her dose. She states that she has had nausea and vomiting for several weeks which she attributed to the increase in her dose however states that yesterday she took a test which was positive. Patient reports that she had her menses several weeks ago however reports that it was atypical of her as she was passing some clots. She has a history of 2 sections, otherwise no other abdominal symptoms. Denies any fevers, chills, chest pain or shortness of breath. No sick contacts. No urinary symptoms. Denies any other complaints or concerns at this time. MD elicited complaint: abdominal pain Onset (ago): hour(s) Pain Consistency: constant Location: epigastric and RUQ Severity: moderate Quality: cramping and stabbing Radiation: none Migration to: no migration Exacerbating factors: nothing Relieving factors: nothing Associated symptoms: nausea and vomiting Related Data Previous Rx's ?Medication ?Instructions ?Recorded amlodipine 10 mg tablet 10 mg PO DAILY #90 tabs 10/06/24 nicotine (polacrilex) 4 mg buccal 4 mg buccal Q8H PRN nicotine 10/06/24 mini lozenge cravings #72 ea cholecalciferol (vitamin D3) 25 25 mcg PO DAILY #90 caps 12/06/24 mcg (1,000 unit) capsule losartan 25 mg tablet 25 mg PO DAILY #30 tabs 12/06/24 hydrochlorothiazide 25 mg tablet 25 mg PO DAILY #90 tabs 01/02/25 hydroxyzine HCl 25 mg tablet 25 mg PO BEDTIME #30 tabs 01/02/25 acetaminophen 500 mg tablet 500 - 1,000 mg (1 - 2 x 500 mg) PO 02/07/25 (Tylenol Extra Strength) Q6H PRN pain #30 tabs doxylamine succinate 25 mg tablet 25 mg PO BEDTIME PRN nausea and 02/07/25 (Unisom (doxylamine)) vomiting #30 tabs ondansetron 4 mg disintegrating 4 mg PO Q8H #3 tabs 02/07/25 tablet pyridoxine (vitamin B6) 25 mg 25 mg PO TID PRN nausea #20 tabs 02/07/25 tablet Allergies Allergy/AdvReac Type Severity Reaction Status Date / Time No Known Allergies Allergy Verified 02/07/25 08:50 Review of Systems Review of Systems Yes all other systems are reviewed and are negative Constitutional: Reports as per HPI [facility] Past Medical History Surgical History Hx of wisdom tooth extraction Hx of section Family History Family History Mother Colon cancer FHx: colon cancer Father No problems noted. Son No problems noted. Daughter No problems noted. 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) Alcohol intake: former Patient Tobacco Use Status: Current everyday Tobacco user Tobacco use type: Cigarette Cigarette Packs Per Day: 0.25 Cigarettes Per Day: 3 Years Smoked: 15 Smoked in Last 30 Days: Yes e-Cigarette/Vaping Use: Former Use (THC Vape) Second Hand Smoke Exposure: Yes Use of substances other than those prescribed or required for medical reasons: Yes Substance Use Type: Marijuana Advance Directives: No Advance Directives Information Provided: No Do you have a plan to hurt others: No Plan Patient : Yes service: No Current occupational status: employed Current occupation: [employer] at [employer] Cognitive needs: No Hearing needs: No Vision needs: Yes (Glasses) Physical Exam ED Vital Signs: Vital Signs - 24 hr 02/07/25 08:49 02/07/25 12:35 Temperature 98 F Pulse Rate 100 73 Respiratory Rate 18 16 Blood Pressure 139/82 127/64 Pulse Oximetry 99 100 Oxygen Delivery Method Room Air Room Air BMI result Body Mass Index 32.6 Const General: cooperative, comfortable and no acute distress Orientation/consciousness: patient oriented x3 Limitations: no limitations HENMT Head: Yes normal to inspection, Yes normocephalic and Yes atraumatic Ears: hearing grossly normal bilaterally General nose exam: Normal external nose present Face and sinus: Yes normal facial exam Mouth: Normal oral and palatal mucosa present, oropharynx normal and moist mucous membranes Throat: Yes posterior oropharynx normal Eyes General: appearance normal, both eyes and all related structures Eyelids: Yes eyelids normal Conjunctivae: conjunctivae normal Sclerae: sclerae normal Pupils: Equal, round and reactive pupils present EOM: EOMs intact bilaterally Neck Neck: Yes normal visual inspection, Yes full ROM and Yes no lymphadenopathy Lymphatic: no lymphadenopathy noted Chest Chest palpation & inspection: normal inspection of the chest Resp Effort & Inspection: normal respiratory effort and able to speak in complete sentences Auscultation: clear to auscultation bilaterally, no crackles, no rales, no rhonchi and no wheezes Cardio Rate: regular rate Rhythm: regular rhythm Heart sounds: S1 normal heart sound present and S2 normal heart sound present GI Other: Abdomen is soft with tenderness palpation in the epigastric and right upper quadrant. No Rebolledo sign. Inspection: Yes normal to inspection Skin General skin exam: no rashes or lesions noted Trauma: no lacerations or abrasions Wounds: no wounds Neuro General: patient oriented x3 and moves all extremities Cranial nerves: Yes Equal, round and reactive pupils present Extrem General: Yes normal to inspection Right upper extremity: normal to inspection Left upper extremity: normal to inspection Right lower extremity: normal to inspection Left lower extremity: normal to inspection Medical Decision Making Medical Decision Making MDM Narrative: This is a 34-year-old female who presents emergency department with concerns of epigastric and right upper quadrant pain which started this morning. On arrival, vital signs within normal limits. She is speaking full sentences under no acute distress. Abdomen is soft with tenderness palpation in the epigastrium and right upper quadrant. Patient does report that she had a positive at home test yesterday. Differential diagnoses include cholecystitis, cholangitis, gastritis, ectopic , threatened miscarriage, . Plan: Labs, EKG, ultrasound right upper quadrant, as well as OB ultrasound 12:27 PM 02/07/2025 (Aleyda Larsen PA-C): Labs returned, she has no leukocytosis, stable H&H, chemistry revealing no electrolyte derangement, AST ALT within normal limits, lipase 10. Beta quant 102,137. OB US revealing Single intrauterine gestation with ultrasound gestational age of 8 weeks, 4 days, +/- 4 days. Estimated date of delivery is 09/15/2025, +/- 4 days. No maternal adnexal mass or pelvic ascites. Abd US revealing gravel size gallstones with echogenic bile intraluminally within the gallbladder, no wall thickening or pericholecystic fluid collection ith a positive sonographic rebolledo's sign. No free fluid. Patient re-evaluated, nausea has resolved as well as pain. Symptoms consistent with biliary colic, will discuss with surgery for f/u and recommendations. 12:32PM 02/07/2025 (Aleyda Larsen PA-C): Discussed with surgeon, Dr. Johns, who will happily see patient once status is changed also advised low-fat diet. No emergent interventions needed at this time. I discussed overall workup with patient, we will discharge patient with strict return precautions. I discussed with patient that is Zofran is a medication that at times can be contraindicated during therefore sent over Unisom and vitamin B6. As well as several tablets of Zofran. Advised to take Tylenol as needed for pain. Advised that if her pain returns, she develops fevers, inability to tolerate PO intake to immediately seek emergent care. She understands and agrees with plan, patient stable for discharge. Differential Diagnosis Differential Diagnoses: The differential diagnosis associated with the presentation includes See above Consult Healthcare Provider Management of the patient was discussed with: Employment Counselor Dr. Johns, gen surg - see course Lab Data [facility] Lab Attestation statement: I reviewed the patient's lab results. See MDM and course 02/07/25 10:18 02/07/25 10:18 Labs: Lab Results 02/07/25 02/07/25 02/07/25 Range/Units 10:18 11:44 11:45 WBC 5.7 (4.8-10.8) X10*3/uL RBC 3.95 L (4.20-5.50) X10*6/uL Hgb 11.3 L (12.0-16.0) g/dl Hct 33.4 L (37.0-47.0) % MCV 84.6 (80.0-98.0) fL MCH 28.6 (27.0-33.0) pg MCHC 33.8 (31.0-35.0) g/dl RDW 13.1 (11.0-16.0) % Plt Count 350 (160-400) X10*3/uL MPV 8.1 L (9.4-12.3) fL Immature Gran % (Auto) 0.7 H (0.0-0.4) % Neut % (Auto) 72.8 (45-73) % Lymph % (Auto) 19.0 L (20-40) % [place] % (Auto) 7.0 (2-11) % Eos % (Auto) 0.3 (0-4) % Baso % (Auto) 0.2 (0-2) % Lymph # (Auto) 1.1 L (1.2-4.9) X10*3/uL [place] # (Auto) 0.4 (0.1-1.2) X10*3/uL Eos # (Auto) 0.0 (0.0-0.4) X10*3/uL Baso # (Auto) 0.0 (0.0-0.2) X10*3/uL Abs Immat Gran (auto) 0.04 H (0.00-0.03) X10*3/uL Absolute Neuts (auto) 4.2 (2.0-8.3) x10*3/uL Absolute Nucleated RBC 0.000 (0.0-0.012) X10*3/uL Nucleated RBC % (auto) 0.0 (0.0-0.2) /100WBC Sodium 137 (135-145) mmol/L Potassium 3.6 (3.3-5.1) mmol/L Chloride 106 (96-108) mmol/L Carbon Dioxide 24 (22-29) mmol/L Anion Gap 11 L (12-20) BUN 4 L (9-16) mg/dL Creatinine 0.50 (0.5-1.4) mg/dL Estim Creat Clear Calc 168.4 Estimated GFR > 60 Random Glucose 91 (60-115) mg/dL Calcium 9.5 (8.4-10.2) mg/dL Total Bilirubin 0.4 (0.0-1.0) mg/dL Direct Bilirubin 0.2 (0.0-0.5) mg/dL AST 29 (5-31) U/L ALT 25 (0-31) U/L Alkaline Phosphatase 71 (39-117) U/L Troponin I High Sens < 2.7 (<3.5-17.0) ng/L Total Protein 7.4 (6.5-8.0) g/dL Albumin 4.1 (3.5-5.0) g/dL Lipase 10 (8-78) U/L Beta HCG, Quant [id number] mIU/mL Urine Color Yellow Urine Appearance Clear Urine pH 7.5 (5.0-9.0) Ur Specific [place] 1.010 (1.005-1.025) Urine Protein Negative (Neg-Trace) mg/dL Urine Glucose (UA) Negative (Negative) mg/dL Urine Ketones Trace (Negative) mg/dL Urine Blood Trace H (Negative) Urine Nitrite Negative (Negative) Ur Leukocyte Esterase Negative (Negative) Urine RBC 0-2 (0-2) /HPF Urine WBC 0-5 (0-5) /HPF Ur Squamous Epith Cells 0-2 (0-2) /HPF Urine Bacteria 1+ (None Seen) Hyaline Casts 0-2 (0-2) /LPF Urine Test POSITIVE H (NEGATIVE) Independent Interpretation I performed an independent interpretation of an: EKG Interpretation: Normal sinus rhythm at a ventricular rate of 72 beats per minute, MA interval 182, QT QTC 402/440, no STEMI Radiology Impression Discussion of test interpretation with radiology: I have reviewed the radiologist's reading. Radiologist Impression: FINDINGS: GALLBLADDER: There are gallstones present in the lumen of the gallbladder. There is echogenic bile present. No wall thickening or pericholecystic fluid. There was a positive sonographic Rebolledo's sign. COMMON BILE DUCT: Normal in caliber measuring 0.3 cm in diameter. FREE FLUID: None. US/US abdomen limited IMPRESSION: 1. No biliary dilatation. 2. Gravel size gallstones with echogenic bile intraluminally within the gallbladder. No wall thickening or pericholecystic fluid collection. There is a positive sonographic Rebolledo's sign. 3. No free fluid. Electronically signed by: Jayro Chirinos MD 02/07/2025 12:02 PM EDT Dictated By: Jayro Chirinos MD FINDINGS: There is a single intrauterine gestational sac with visible yolk sac, embryo/fetus, and cardiac activity. There is no significant subchorionic hemorrhage or hematoma. HR: 165 beats per minute. CRL (crown rump length): 1.94 cm (8 weeks, 4 days, +/- 4 days). SURJIT (estimated date of delivery): 09/15/2025 +/- 4 days. MATERNAL ADNEXA: The right maternal ovary measures 2.9 x 1.6 x 2.2 cm. Normal sonographic appearance. The left maternal ovary measures 2.9 x 2.1 x 2.4 cm. Normal sonographic appearance. There is no significant maternal adnexal mass. No maternal pelvic ascites. US/US OB <= 14 weeks fetus IMPRESSION: 1. Single intrauterine gestation with ultrasound gestational age of 8 weeks, 4 days, +/- 4 days. 2. Estimated date of delivery is 09/15/2025, +/- 4 days. 3. No maternal adnexal mass or pelvic ascites. Electronically signed by: Jayro Chirinos MD 02/07/2025 12:05 PM EDT Dictated By: Jayro Chirinos MD Signed By: <Electronically signed by Medications Administered Discontinued Medications Generic Name Dose Route Start Last Admin Trade Name Freq PRN Reason Stop Dose Admin Acetaminophen 1,000 mg in 100 mls @ 400 mls/hr 02/07/25 10:28 02/07/25 11:58 Ofirmev IV 02/07/25 10:42 Infused ONCE ONE Infusion Sodium Chloride 1,000 mls @ 999 mls/hr 02/07/25 10:29 02/07/25 11:58 Ns IV 02/07/25 11:29 Infused .Q1H1M ONE Infusion Ondansetron HCl 4 mg 02/07/25 10:31 02/07/25 10:34 Ondansetron Hcl 4 Mg/2 Ml Vial IVPUSH 02/07/25 10:32 4 mg ONCE ONE Administration Critical Care Time Critical Care Time Critical Care Time: Yes Total Critical Care Time: 32 Attestation: I have personally provided critical care time exclusive of time spent on separately billable procedures. Time includes review of lab data, radiology results, discussion with consultants, and monitoring for potential decompensation. Intervention performed as documented. Discharge Plan Discharge Clinical Impression: Biliary colic Qualifiers: Weeks of gestation: 8 weeks Qualified Code(s): Z3A.08 - 8 weeks gestation of Patient Disposition: Home, Self-Care Instructions: (ED), Biliary Colic (ED), Gallstones (ED), Low Fat Diet (ED) Additional Instructions: You were seen in the emergency department due to abdominal pain. Your blood work was reassuring today. Your ultrasound of your gallbladder is concerning for gallstones. Using a low-fat diet can help prevent gall stone attacks. See attached information for more guidance on this. Your ultrasound reveals a single intrauterine gestation with a gestational age of 8 weeks, 4 days +/-4 days, estimated date of delivery 09/15/2025 +/-4 days. You may take Tylenol as needed for pain and symptoms. Vitamin B6 and Unisom can be helpful for nausea and vomiting. Unisom can cause drowsiness, take at bedtime as needed. Zofran is a medication that can also help with nausea however this is contraindicated in therefore I am only allowed to give you several doses of this should you need for emergent cases. If any new or worsening symptoms occur including but not limited to worsening pain, high fevers, inability to eat or drink secondary to nausea or vomiting, please return for re-evaluation. You may follow-up with the surgical service outpatient, call to make an appointment. Prescriptions: New acetaminophen [Tylenol Extra Strength] 500 mg tablet 500 - 1,000 mg PO Q6H PRN (Reason: pain) Qty: 30 0RF pyridoxine (vitamin B6) 25 mg tablet 25 mg PO TID PRN (Reason: nausea) Qty: 20 0RF Unisom (doxylamine) 25 mg tablet 25 mg PO BEDTIME PRN (Reason: nausea and vomiting) Qty: 30 0RF ondansetron 4 mg tablet,disintegrating 4 mg PO Q8H Qty: 3 0RF No Action hydroxyzine HCl 25 mg tablet 25 mg PO BEDTIME Qty: 30 1RF hydrochlorothiazide 25 mg tablet 25 mg PO DAILY Qty: 90 2RF nicotine (polacrilex) 4 mg mini lozenge 4 mg buccal Q8H PRN (Reason: nicotine cravings) Qty: 72 1RF amlodipine 10 mg tablet 10 mg PO DAILY Qty: 90 2RF losartan 25 mg tablet 25 mg PO DAILY Qty: 30 2RF cholecalciferol (vitamin D3) 25 mcg (1,000 unit) capsule 25 mcg PO DAILY Qty: 90 3RF [place] [facility] [place]Provider Group, General Surgery] Print Language: Panamanian
[2025-02-07 10:22] LABS: MANUAL DIFF FLAG NO
[2025-02-07 10:25] LABS: Hematocrit 33.4 % (37.0-47.0); Hemoglobin 11.3 g/dl (12.0-16.0); Imm Gran Abs Auto 0.04 X10*3/uL (0.00-0.03); Imm Gran Pct Auto 0.7 % (0.0-0.4); Lymphocytes Absolute Auto 1.1 X10*3/uL (1.2-4.9); Mean Corpuscular HGB Conc 33.8 g/dl (31.0-35.0); Mean Corpuscular Hemoglobin 28.6 pg (27.0-33.0); Mean Corpuscular Volume 84.6 fL (80.0-98.0); NRBC Abs Auto 0.000 X10*3/uL (0.0-0.012); NRBC Pct Auto 0.0 /100WBC (0.0-0.2); Platelet Count 350 X10*3/uL (160-400); Red Blood Count 3.95 X10*6/uL (4.20-5.50); White Blood Count 5.7 X10*3/uL (4.8-10.8)
--- OUTSIDE RECORDS SUMMARY | 2025-02-07 10:41 | XMS_ITS | Encounter Summary ---
Author Organization [facility] Address [address] [place] [address] Care Team Providers Care Composite Bond Worker Name Role Phone Sinai Stevens MD Primary Care Provider Un available Community, Pcp Primary Care Provider Unavailabl e Reason for Visit * Reason Onset Date Comments er follow up 02/24/2023 Encounter Details Date Type Department Care Team Description 02/24/2023 Telephone Adult Medicine - [address] [address] Sinai Stevens MD er follow up Social [...] - 02/26/2023 10:30 AM EDT Spoke to [facility] on [facility]. Patient will be faxing over medical notes from 02/20/2023 day pt was treated. * Telephone Encounter - Ivett Robb R.N. - 02/24/2023 11:32 AM EDT Called patient. States went to [facility] on [facility] on 02/20/23. Elevated BP was found incidentally while being examined for URI symptoms. Does not know the exact number Admits to Stress at home. No dizziness, headache, or vision issues Appt scheduled 02/27/23 Please obtain notes from [facility] for upcoming appt * Telephone Encounter - Maeve Javier - 02/24/2023 10:58 AM EDT Hospital follow up appointment needed [facility] patient was treated at: [address] Was this only an ER visit [...] on filedocumented in this encounter Care Teams Composite Bond Worker Relationship Specialty Start Date End Date Sinai Stevens MD PCP - General Internal Medicine 02/24/2304/18 [facility] [place], Pcp PCP - General Internal Medicine 04/19/24 documented as of this encounter
[2025-02-07 10:44] LABS: Alanine Aminotransferase 25 U/L (0-31); Albumin Level 4.1 g/dL (3.5-5.0); Alkaline Phosphatase 71 U/L (39-117); Anion Gap 11 (12-20); Aspartate Amino Transferase 29 U/L (5-31); Blood Urea Nitrogen 4 mg/dL (9-16); Calcium 9.5 mg/dL (8.4-10.2); Carbon Dioxide 24 mmol/L (22-29); Chloride 106 mmol/L (96-108); Creatinine Clr Calc Pharmacy 168.4; Estimated Glomerular Filt Rate > 60; Lipase 10 U/L (8-78); Potassium 3.6 mmol/L (3.3-5.1); Sodium 137 mmol/L (135-145); Total Protein 7.4 g/dL (6.5-8.0)
--- NOTE | 2025-02-07 11:11 | ECG_ITS ---
Test Reason : EPIGASTRIC PAIN Blood Pressure : */* mmHG Vent. Rate : 72 BPM Atrial Rate : 72 BPM P-R Int : 182 ms QRS Dur : 74 ms QT Int : 402 ms P-R-T Axes : 31 25 17 degrees QTcB Int : 440 ms Normal sinus rhythm Normal ECG No previous ECGs available Referred By: Aleyda Larsen Electronically Signed By: MINH RICE MD
[2025-02-07 11:51] LABS: UPreg QC Valid YES
[2025-02-07 11:52] LABS: Appearance Urine Clear; Glucose Urine UA Negative (Negative); PH 7.5 (5.0-9.0); Specific Gravity - Urine 1.010 (1.005-1.025); UMIC TRIGGER UACC YES
[2025-02-07 12:12] LABS: Troponin-I High Sensitivity < 2.7 ng/L (<3.5-17.0)
[2025-02-07 12:35] VITALS: BP 127/64; PULSE 73; RESP 16; O2SAT 100
[2025-02-07 13:06] VITALS: BP 127/64; PULSE 73; RESP 16; TEMP 37; O2SAT 100
== END 2025-02-07 13:07 | disposition home or self-care (01) ==
PROVIDERS: Physician Assistant Medical; Emergency Provider Emergency Medicine
DX: O26.891 Other specified pregnancy related conditions, first trimester (principal); K80.50 Calculus of bile duct without cholangitis or cholecystitis without obstruction; Z3A.08 8 weeks gestation of pregnancy; R10.11 Right upper quadrant pain
CPT/HCPCS: 36415; 76705; 76801; 80048; 80076; 81001; 81025; 83690; 84484; 84702; 85025; 93005; 96365; 96375; 99284; 99285; J0131; J2405

== ENCOUNTER → 2025-02-07 10:28 | Outpatient (BNV) | payer OTHER, SELFPAY | PROVIDERS: Emergency Provider Emergency Medicine; Visit Provider Radiology Diagnostic Radiology | DX: Z3A.08 8 weeks gestation of pregnancy (principal); K80.20 Calculus of gallbladder without cholecystitis without obstruction | CPT/HCPCS: 76705; 76801 ==

== ENCOUNTER → 2025-02-07 11:11 | Outpatient (BNV) | payer OTHER, SELFPAY | PROVIDERS: Emergency Provider Emergency Medicine; Visit Provider Internal Medicine Cardiovascular Disease | DX: R10.13 Epigastric pain (principal) | CPT/HCPCS: 93010 ==

== ENCOUNTER 2025-03-07 12:48 | Outpatient (AMB) | payer OTHER, SELFPAY ==
--- NOTE | 2025-03-07 13:04 | MHC.OFFVIS ---
Vital Signs 03/07/25 13:13 Height 5 ft 4 in Weight 196 lb BMI 33.6 BP 143/78 H Blood Pressure Location Lt brachial Position Sitting Pulse 75 Intake Visit Reasons: biliary colic Intake Note: Patient is seen in office for ER follow up visit, following for biliary colic. Pt c/o: symptoms one day to prior to ER visit, has been getting worse, last night symptoms lasted for 3 hours, nausea, vomit, RUQ pain radiates to the back us: 02/07/25 Photographic Restorer Required: No Accompanied by: Self / Same As Patient Allergies No Known Allergies Allergy (Verified 03/07/25 13:11) Medication List - Last Reconciled 03/07/25 by Med Toribio MD acetaminophen (Tylenol Extra Strength) 500 - 1,000 mg (1 - 2 x 500 mg) PO Q6H PRN amlodipine 10 mg PO DAILY cholecalciferol (vitamin D3) 25 mcg PO DAILY doxylamine succinate (Unisom (doxylamine)) 25 mg PO BEDTIME PRN hydrochlorothiazide 25 mg PO DAILY hydroxyzine HCl 25 mg PO BEDTIME losartan 25 mg PO DAILY nicotine (polacrilex) 4 mg buccal Q8H PRN ondansetron 4 mg PO Q8H pyridoxine (vitamin B6) 25 mg PO TID PRN HPI Comments Details: 35-year-old female patient presenting for evaluation of abdominal pain located mainly in the right upper quadrant. She has had several repeated episodes with the associated nausea and vomiting usually occurring early in the morning. Her last episode occurred yesterday and lasted for approximately 3 hours. She reports the pain is made worse with a spicy and fatty foods. She was previously evaluated in the emergency department on 02/07/2025. Workup at that time revealed tenderness in the right upper quadrant with a positive Rebolledo sign. Ultrasound confirmed multiple gallstones within the gallbladder with tenderness on palpation of the gallbladder. She was also noted to have an 8 week , although she reports that she is no longer at this time. She denies any fever or chills. Her past surgical history is significant for section x2. She presents today to discuss laparoscopic cholecystectomy. PFS Surgical History Hx of wisdom tooth extraction Hx of section Family History Mother Colon cancer FHx: colon cancer Father No problems noted. Son No problems noted. Daughter No problems noted. 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 [employer] Cognitive needs: No Hearing needs: No Vision needs: Yes (Glasses) Female Reproductive History Menstrual Age of Menarche: 14 Review of Systems Const All systems reviewed & are unremarkable except as noted in HPI and below Physical Exam Const General: cooperative and no acute distress Nutritional Appearance: well nourished Orientation/consciousness: patient oriented x3 Limitations: no limitations HEENT Head: Yes normocephalic and Yes atraumatic Ears: hearing grossly normal bilaterally Resp Effort & Inspection: normal respiratory effort, no audible wheezes, no cough and no respiratory distress Cardio Jugular venous distension: no JVD GI Other: Negative Rebolledo sign Inspection: Yes normal to inspection Palpation (GI): Soft to palpation, nontender, no guarding and not rigid Percussion: Yes normal to percussion Auscultation: normal bowel sounds Rectal Exam - Female: deferred Skin Other: Warm, dry, no rash Neuro General: patient oriented x3 Extrem General: Yes no clubbing, cyanosis or edema Assessment & Plan Assessment & Plan (1) Biliary colic: Code(s): K80.50 - Calculus of bile duct without cholangitis or cholecystitis without obstruction Category: Medical (2) Cholelithiasis: Code(s): K80.20 - Calculus of gallbladder without cholecystitis without obstruction Category: Medical Qualifiers: Cholelithiasis location: gallbladder Cholecystitis presence: without cholecystitis Biliary obstruction: without biliary obstruction Qualified Code(s): K80.20 - Calculus of gallbladder without cholecystitis without obstruction Plan 35-year-old female patient presenting for evaluation of symptomatic cholelithiasis. She has had multiple episodes of abdominal pain in the right upper quadrant with the associated nausea and vomiting and was found to have gallstones within the gallbladder. On examination today her abdomen is soft and nondistended with no abdominal tenderness and a negative Rebolledo sign. We discussed laparoscopic or possible open cholecystectomy including the risks, benefits and alternatives and she consents to the surgery. She will be scheduled as a short-stay surgery at her earliest convenience. Coding Level of Care Code New Pt Level 4 (99933) Diagnoses Biliary colic K80.50 Calculus of gallbladder without cholecystitis without obstruction K80.20 Cholelithiasis location: gallbladder Cholecystitis presence: without cholecystitis Biliary obstruction: without biliary obstruction
[2025-03-07 13:13] VITALS: BP 143/78; PULSE 75; BMI 33.6
--- OUTSIDE RECORDS SUMMARY | 2025-03-07 16:44 | XMS_ITS | Patient Health Record ---
Author Organization [facility] Address [address] [place] [address] Care Team Providers Care Hydrologic Modeler Name Role Phone Tano Nguyen Unavailable [phone] Allergies No Known Allergies Reason For Referral [...] Insured Coverage Start Date Coverage End Date [facility] [address] [facility] [place] [address] [id number] Randall Bhandari Self - patient is the insured Medical (General) History Medical History History ICD Code Chicken pox Surgical History Surgery Date(Month/Year) 05/08/09 11/27/15
== END 2025-03-07 14:02 | disposition home or self-care (01) ==
LOC: HO.HGS 12:48
PROVIDERS: Visit Provider Surgery
DX: K80.50 Calculus of bile duct without cholangitis or cholecystitis without obstruction (principal); K80.20 Calculus of gallbladder without cholecystitis without obstruction
CPT/HCPCS: 99204

== ENCOUNTER 2025-03-09 09:32 | Day surgery (SDC) | payer OTHER, SELFPAY ==
[2025-03-09] VITALS (7 sets, daily range): BP systolic 127–157; BP diastolic 81–96; PULSE 64–99; RESP 16; TEMP 36.4–36.7; O2SAT 93–99; BMI 34.6
[2025-03-09 09:47] LABS: UPreg QC Valid YES
[2025-03-09] MEDS: Lactated Ringers 1,000 ML 100 ML IVCONT (10:05)
--- NOTE | 2025-03-09 10:15 | P.CONAN_ITS ---
Documented by User: Gris Garcia NP 03/08/25 10:01 HPI - Anesthesia Eval Consult details Narrative: 35 yr old female for cholecystectomy laparoscopic, possible open Pt was estimated to be ~8 weeks at 02/07/25 [facility] visit for abdominal pain; had HCG, US confirming this. At 03/07/25 visit with GI she stated she is no longer . Current tobacco user, marijuana user PMF Active Problems Active Problems: All Active Problems (Updated 03/07/25 @ 13:31 by Med Toribio MD) Cholelithiasis (Acute) Biliary colic (Acute) Vitamin D deficiency (Acute) Folate deficiency (Acute) Low TSH level (Acute) Screening for hypercholesterolemia (Acute) Obesity (BMI 30-39.9) (Acute) Insomnia (Acute) Anxiety (Acute) Depression (Acute) Cervical cancer screening (Acute) Tobacco use disorder (Acute) Hypertension (Acute) Family History Family History Mother Colon cancer FHx: colon cancer Father No problems noted. Son No problems noted. Daughter No problems noted. Maternal Grandfather FHx: colon cancer Surgical History Surgical History Hx of wisdom tooth extraction Hx of section Social History Social History Household Members: Family Housing: Apartment Are you a primary residential care facility manager to a significant other at home: Yes (2 Children) Alcohol intake: former Patient Tobacco Use Status: Never used Tobacco Tobacco use type: Cigarette Cigarette Packs Per Day: 0.25 Cigarettes Per Day: 3 Years Smoked: 15 e-Cigarette/Vaping Use: Former Use (THC Vape) Second Hand Smoke Exposure: Yes Use of substances other than those prescribed or required for medical reasons: Yes Substance Use Type: Marijuana Substance Use Type Other:: occassionally Are you DNR?: No Advance Directives: No Advance Directives Information Provided: Yes : No Poor oral hygiene: No service: No Current occupational status: employed 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 Son No problems noted. Daughter No problems noted. Maternal Grandfather FHx: colon cancer Family history of problems with anesthesia: No Surgical History Surgical History Hx of wisdom tooth extraction Hx of section History of Problems with Anesthesia: No Social History Social History Household Members: Family Housing: Apartment Are you a primary residential care facility manager to a significant other at home: Yes (2 Children) Alcohol intake: former Patient Tobacco Use Status: Never used Tobacco Tobacco use type: Cigarette Cigarette Packs Per Day: 0.25 Cigarettes Per Day: 3 Years Smoked: 15 e-Cigarette/Vaping Use: Former Use (THC Vape) Second Hand Smoke Exposure: Yes Use of substances other than those prescribed or required for medical reasons: Yes Substance Use Type: Marijuana Substance Use Type Other:: occassionally Are you DNR?: No Advance Directives: No Advance Directives Information Provided: Yes : No Poor oral hygiene: No service: No Current occupational status: employed 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 [employer] Cognitive needs: No Hearing needs: No Vision needs: Yes (Glasses) Meds Allergies Allergy/AdvReac Type Severity Reaction Status Date / Time No Known Allergies Allergy Verified 03/07/25 13:11 Exam Exam Date and Time: 03/09/25 1015 Height,Weight and Vital Signs: Height 5 ft 3 in Weight 88.5 kg Vital Signs Temperature 97.5 F 03/09/25 09:49 Pulse Rate 77 03/09/25 09:49 Respiratory Rate 16 03/09/25 09:49 Blood Pressure 136/89 03/09/25 09:49 Oxygen Delivery Method Room Air 03/09/25 09:49 Temperature 97.5 F 03/09/25 09:49 Pulse Rate 77 03/09/25 09:49 Respiratory Rate 16 03/09/25 09:49 Blood Pressure 136/89 03/09/25 09:49 Oxygen Delivery Method Room Air 03/09/25 09:49 Airway Mallampati Class: II TM Dist: >3cm Neck ROM: Full Loose/Missing/Broken Teeth: No (patient denies any loose or broken teeth) Heart: S1S2 Lungs: CTAB Assessment and Plan Assessment Anesthesia Assessment: Anesthesia Plan Discussed and Chart Reviewed Final Anesthetic Review Family History of Problems with Anesthesia: No History of Problems with Anesthesia: No NPO: Yes ASA Class: II Final Preanesthetic Review: No Changes in Pt Med Stat, Meds/Allgs Chart Reviewed, Consent Obtained/Reviewed and Anes Risks/Benef Reviewed Patient Risk: Low Procedure Risk: Intermediate Anesthetic Plan Anesthetic Plan: GA and Agree w/ Assess. and Plan Disposition: Standard PACU
--- NOTE | 2025-03-09 10:31 | MHC.SHP ---
Pre-Procedural Eval Section A - 24 Hr Update-Section A only Date of Service: 03/09/25 The patient is an INPATIENT: No Changes since office visit: Yes Patient answered all questions; No Cold of Flu in the past 2 weeks, No New Medical Problems and No Changes in Medication The patient has been examined within 24 hours of the surgical procedure. The History & Physical has been completed within 30 days and I have reviewed it.: Yes Section B - Complete if H&P > 30 days Chief Complaint: Calculus of bile duct without cholangitis Allergies: Allergies Allergy/AdvReac Type Severity Reaction Status Date / Time No Known Allergies Allergy Verified 03/07/25 13:11 Plan Diagnosis/Plan: Unchanged I have reviewed the history and physical and performed a pertinent physical examination on my patient. No changes have occurred unless specified. Time Spent With Patient Time: Total time managing care of this patient today ____ minutes.
--- NOTE | 2025-03-09 11:57 | W.PM.OPN ---
Operative Note Operative Note Date of Service: 03/09/25 Narrative: Preoperative diagnosis: Biliary colic, cholelithiasis Postoperative diagnosis: Same Procedure: Laparoscopic cholecystectomy Surgeon: Med Toribio MD Robot Operator: Theresa Smith PA-C; Artemio Lee PA-C, Aj Bermudez, MS-3, LORY Allen Anesthesia: General endotracheal Indications for procedure: 35-year-old female patient presenting with complaints of epigastric and right upper quadrant abdominal pain with a occasional chest pain determined to have gallstones within the gallbladder. Findings were suggestive of biliary colic. She presents today for a laparoscopic or possible open cholecystectomy. Operative findings: Normal-appearing gallbladder with multiple gallstones within the gallbladder. Specimen: gallbladder Estimated blood loss: Less than 2 mL Complications: None Procedure details: Patient was brought to the OR and placed in a supine position. After administering general anesthesia the patient's abdomen was prepped with ChloraPrep and draped in a sterile fashion. A surgical time-out was called the consent confirmed. Patient received preoperative antibiotics and Venodyne boots were in place. Local anesthesia consisting of 0.5% Sensorcaine without epinephrine was infiltrated in a periumbilical region. A 5 mm incision was made above the umbilicus in a transverse fashion. The Veress needle was then inserted while elevating abdominal cavity with towel clips. After positive drop test the abdomen was insufflated to a pressure of 15 mm of mercury. The Veress needle was then removed and a 5 mm trocar inserted. The camera was inserted in the abdomen explored. A 12 mm trocar was then placed in the epigastrium. Two 5 mm trocars placed in the right upper quadrant by the anesthesiologist assistant certified. The patient was placed in reverse Trendelenburg positioning and rotated to the left. The gallbladder was grasped with the fundus and retracted cephalad by the anesthesiologist assistant certified. The infundibulum was then grasped and retracted away from the liver bed, also by the anesthesiologist assistant certified. The Dolphin dissected was then used by the surgeon to dissect the peritoneum off the infundibulum to reveal the junction with the cystic duct. Cystic artery was noted slightly medial and posterior to the cystic duct. After obtaining a critical view the cystic duct was doubly clipped and divided. The cystic artery was then doubly clipped and divided. The gallbladder was then dissected off the liver bed using electrocautery with an L hook. Hemostasis was assured all times using the electrocautery. When the gallbladder is completely dissected off the liver bed was placed in an Endo-Catch bag and brought out through the epigastric incision. The gallbladder was sent to pathology for further examination. The abdomen was then re-examined. The liver bed was irrigated and suctioned dry. No bleeding or bile leak could be identified. CO2 was then evacuated and all trocars removed. Fascia was closed at the epigastric incision using a [id number] 0 Polysorb suture. Skin was closed in all incisions using a subcuticular 4 0 Polysorb suture by both the surgeon and anesthesiologist assistant certified. Sterile dressings consisting of Steri-Strips, 2 x 2 gauze, and Tegaderm were then applied. The patient tolerated the procedure well. Sponge instrument and needle counts reported as correct. The patient was transferred to PACU in stable condition.
== END 2025-03-09 13:44 | disposition home or self-care (01) ==
PROVIDERS: Nurse Practitioner; Visit Provider Surgery
PROC: 0FT44ZZ Resection of Gallbladder, Percutaneous Endoscopic Approach (ICD-10-PCS; CPT 47562; principal; 2025-03-09 11:30)
DX: K80.10 Calculus of gallbladder with chronic cholecystitis without obstruction (principal); Z79.899 Other long term (current) drug therapy; F17.210 Nicotine dependence, cigarettes, uncomplicated
CPT/HCPCS: 47562; 81025; 88304; J0131; J1100; J1171; J1630; J1885; J2003; J2405; J2704; J3010

== ENCOUNTER → 2025-03-09 09:32 | Outpatient (BNV) | payer OTHER, SELFPAY | PROVIDERS: Visit Provider Surgery | DX: K80.10 Calculus of gallbladder with chronic cholecystitis without obstruction (principal) | CPT/HCPCS: 47562 ==

== ENCOUNTER 2025-03-21 10:57 | Outpatient (AMB) | payer OTHER, SELFPAY ==
--- NOTE | 2025-03-21 10:58 | MHC.OFFVIS ---
Vital Signs 03/21/25 10:59 Height 5 ft 4 in Weight 189 lb 4 oz BMI 32.5 Intake Visit Reasons: post lap xavi Intake Note: Patient here s/p Laparoscopic cholecystectomy. Patient c/o: reports no complaints at this time. Surgery: (ELEANOR) 03-09-2025 Dormitory Keeper Required: No Accompanied by: Self / Same As Patient Allergies No Known Allergies Allergy (Verified 03/21/25 11:03) HPI HPI post lap xavi: Details: Doing well, has no concerns. Denies abdominal pain. Denies nausea or vomiting. She has been seeing to a bland diet as she knows sutures to avoid fatty foods, states she tried an outside able and this sat very heavy but plans to advance her diet slowly. Denies any heavy lifting. Denies fevers or chills at home. No concerns with any of the incision sites. [facility] Surgical History Hx laparoscopic cholecystectomy (03/09/25) Hx of wisdom tooth extraction Hx of section Family History Mother Colon cancer FHx: colon cancer Father No problems noted. Son No problems noted. Daughter No problems noted. 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 Inspection: No distended Palpation (GI): Soft to palpation and nontender Neuro General: patient oriented x3 Assessment & Plan Assessment & Plan (1) S/P laparoscopic cholecystectomy: Code(s): Z90.49 - Acquired absence of other specified parts of digestive tract Category: Medical Plan 35-year-old female s/p laparoscopic cholecystectomy on 03/[address] Toribio returned to office for routine follow up. Overall patient doing very well, no concern at this time. Not experiencing pain, nausea, vomiting. Has been seeing to a bland diet, I did recommend that she avoid high fatty foods but she can start to trial her baseline diet to see what sits well with her. She is agreeable this plan and plans to do so. She has been avoiding heavy lifting, we will continue activity restrictions for the next 2 weeks. On exam her abdomen is soft benign. Incision sites look clean dry and intact, no concern for infection at this time. At this point no longer requiring routine follow up, can return as needed with any questions or concerns Coding Level of Care Code Global (07731) Diagnoses S/P laparoscopic cholecystectomy Z90.49
[2025-03-21 10:59] VITALS: BMI 32.5
--- OUTSIDE RECORDS SUMMARY | 2025-03-21 12:22 | XMS_ITS | Patient Health Record ---
Author Organization [facility] Address [address] [place] [address] Care Team Providers Care Computer Forensics Analyst Name Role Phone Tano Nguyen Unavailable [phone] Allergies No Known Allergies Reason For Referral [...] Insured Coverage Start Date Coverage End Date [facility] [address] [place] [address] [id number] Randall Bhandari Self - patient is the insured Medical (General) History Medical History History ICD Code Chicken pox Surgical History Surgery Date(Month/Year) 05/08/09 11/27/15
== END 2025-03-21 11:06 | disposition home or self-care (01) ==
LOC: HO.HGS 10:58
DX: Z90.49 Acquired absence of other specified parts of digestive tract (principal)
CPT/HCPCS: 99024

== ENCOUNTER 2025-04-08 08:26 | Emergency (ER) | payer OTHER, SELFPAY ==
[2025-04-08 08:30] VITALS: BP 159/74; PULSE 94; RESP 20; TEMP 37; O2SAT 100
--- OUTSIDE RECORDS SUMMARY | 2025-04-08 09:10 | XMS_ITS | Encounter Summary ---
Author Organization [facility] Address [address] [place] [address] Care Team Providers Care Column Precaster Name Role Phone Sinai Stevens MD Primary Care Provider Un available Community, Pcp Primary Care Provider Unavailabl e Reason for Visit * Reason Onset Date Comments Medical Records 12/17/2023 Encounter Details Date Type Department Care Team Description 12/17/2023 Telephone Adult Medicine - [address] [address] Sinai Stevens MD Medical Records Social History Tobacco Use Types Packs/Day Years Used Date Smoking Tobacco: Every Day Smokeless Tobacco: Never Alcohol Use Standard Drinks/Week Comments Yes 0 (1 standard drink = 0.6 oz pur e alcohol) occ Sex Assigned at Date Recorded Not on file documented as of this encounter Miscellaneous Notes * Telephone Encounter - Dustin Kumar - 12/17/2023 8:58 AM EDT Pt has ER f/u scheduled for tomorrow at 11:[address] Dominguez. Pt was evaluated at [facility] ER yesterday for high blood pressure. Pls retrieve records, thanks. documented in this encounter Plan of Treatment Not on file documented as of this encounter Visit Diagnoses Not on filedocumented in this encounter Care Teams Column Precaster Relationship Specialty Start Date End Date Sinai Stevens MD PCP - General Internal Medicine 02/24/2304/18 Community, Pcp PCP - General Internal Medicine 04/19/24 documented as of this encounter
--- OUTSIDE RECORDS SUMMARY | 2025-04-08 09:10 | XMS_ITS | Patient Health Record ---
Author Organization [facility] Address [address] [place] [address] Care Team Providers Care Parts Counter Associate Name Role Phone Tano Nguyen Unavailable [phone] Allergies No Known Allergies Reason For Referral [...] Insured Coverage Start Date Coverage End Date [facility] [address] [place] [address] [id number] Randall Bhandari Self - patient is the insured Medical (General) History Medical History History ICD Code Chicken pox Surgical History Surgery Date(Month/Year) 05/08/09 11/27/15
--- OUTSIDE RECORDS SUMMARY | 2025-04-08 09:10 | XMS_ITS | Encounter Summary ---
Author Organization [facility] Address [address] [place] [address] Care Team Providers Care Plate Painter Name Role Phone Skinny Hernandez MD Primary Care Provide r Unavailable Sinai Stevens MD Primary Care Provider Un available Community, Pcp Primary Care Provider Unavailabl e Reason for Referral * EXTERNAL (Routine) - Authorized/Booked Specialty Diagnoses / Procedures Referred By Kandice douglas Referred To Contact COTTRELL BLOWER / Genetics Diagnoses Family history of colon cancer in mother Family history of breast cancer Procedures REFERRAL TO ADULT GENETICS Haley Zarate PA-C [address] [place] [address] Liana Hernandez MD [address] [place] [address] [facility] [place] [address] Referral ID Status Reason Start Date Expiration Date V isits Requested Visits Authorized SEE NOTE Authorized/B ooked 09/07/2019 12/08/2019 1 1 Reason for Visit * Reason Onset Date Comments Museum Archivist Feedback 09/07/2019 genetic testing Encounter Details Date Type Department Care Team Description 09/07/2019 Telephone Adult Medicine - [place] [address] [place] [address] Haley Zarate PA-C Museum Archivist Feedback (genetic testing) Social History Tobacco Use Types Packs/Day Years Used Date Smoking Tobacco: Every Day Smokeless Tobacco: Never Alcohol Use Standard Drinks/Week Comments Yes 0 (1 standard drink = 0.6 oz pur e alcohol) occ Sex Assigned at Date Recorded Not on file documented as of this encounter Miscellaneous Notes * Telephone Encounter - Haley Zarate PA-C - 09/07/2019 9:34 AM EDT New order signed thank you * Telephone Encounter - Madeline Hsieh - 09/07/2019 9:31 AM EDT Haley, Ceasar have recently placed an order for this patient for genetic testing. This order needs to be changed to an external order.I have pended you an external genetic testing order. Please review and signpended order. Thank you, Madeline Referrals Lumber Tying Machine Operator [facility] Referrals Department documented in this encounter Plan of Treatment Not on file documented as of this encounter Visit Diagnoses Diagnosis Family history of colon cancer in mother- Primary Family history of breast cancer Family history of malignant neoplasm of breast documented in this encounter Care Teams Plate Painter Relationship Specialty Start Date End Date Skinny Hernandez MD PCP - General Internal Medicine 11/05/18 Sinai Stevens MD PCP - General Internal Medicine 02/24/2304/18 [facility], Pcp PCP - General Internal Medicine 04/19/24 documented as of this encounter
--- OUTSIDE RECORDS SUMMARY | 2025-04-08 09:10 | XMS_ITS | Encounter Summary ---
Author Organization [facility] Address [address] [place] [address] Care Team Providers Care Laminating Machine Operator Name Role Phone Skinny Hernandez MD Primary Care Provide r Unavailable Sinai Stevens MD Primary Care Provider Un available Community, Pcp Primary Care Provider Unavailabl e Encounter Details Date Type Department Care Team Description 08/01/2019 Waybill Clerk Report Medical Records [address] [place] [id number] Racquel Holley CNM Social History Tobacco Use Types Packs/Day Years Used Date Smoking Tobacco: Every Day Smokeless Tobacco: Never Alcohol Use Standard Drinks/Week Comments Yes 0 (1 standard drink = 0.6 oz pur e alcohol) occ Sex Assigned at Date Recorded Not on file documented as of this encounter Plan of Treatment Not on file documented as of this encounter Visit Diagnoses Not on filedocumented in this encounter Care Teams Laminating Machine Operator Relationship Specialty Start Date End Date Skinny Hernandez MD PCP - General Internal Medicine 11/05/18 Sinai Stevens MD PCP - General Internal Medicine 02/24/2304/18 Community, Pcp PCP - General Internal Medicine 04/19/24 documented as of this encounter
--- OUTSIDE RECORDS SUMMARY | 2025-04-08 09:10 | XMS_ITS | Encounter Summary ---
Author Organization [facility] Address [address] [place] [address] Care Team Providers Care Metal Dealer Name Role Phone Sinai Stevens MD Primary Care Provider Un available Community, Pcp Primary Care Provider Unavailabl e Encounter Details Date Type Department Care Team Description 12/09/2023 Release of Information Medical Records [address] [place] [id number] Abstract, Provider Social History Tobacco Use Types Packs/Day Years Used Date Smoking Tobacco: Every Day Smokeless Tobacco: Never Alcohol Use Standard Drinks/Week Comments Yes 0 (1 standard drink = 0.6 oz pur e alcohol) occ Sex Assigned at Date Recorded Not on file documented as of this encounter Nursing Notes * Sarah Agudelo - 12/09/2023 8:43 AM EDT faxed request to [facility] to obtain records. 12/09/23 ID# [id number] documented in this encounter Plan of Treatment Not on file documented as of this encounter Visit Diagnoses Not on filedocumented in this encounter Care Teams Metal Dealer Relationship Specialty Start Date End Date Sinai Stevens MD PCP - General Internal Medicine 02/24/2304/18 Community, Pcp PCP - General Internal Medicine 04/19/24 documented as of this encounter
--- NOTE | 2025-04-08 09:19 | ED.EYEPROB ---
HPI - Eye Problem General Chief complaint: Eye Problems Stated complaint: pain in right eye Time Seen by Provider: 04/08/25 09:18 Source: patient Mode of arrival: ambulatory Limitations: no limitations History of Present Illness ED Provider: LAUREN BASS PA-C HPI Narrative: 35-year-old female who presents to the ED today for evaluation of right eye irritation that began on waking this morning. Reports worsening irritation throughout the day. Admits to crusting to her right eye on waking this morning. Endorses associated tearing, redness and photosensitivity. No vision changes. Has not trialed any [id number] pain meds. She does not recall getting anything in her eye. No exposure to new irritants/products. Does not wear corrective lenses or contacts. Denies fever/chills. No blunt injury/trauma. Related Data Previous Rx's ?Medication ?Instructions ?Recorded amlodipine 10 mg tablet 10 mg PO DAILY #90 tabs 10/06/24 nicotine (polacrilex) 4 mg buccal 4 mg buccal Q8H PRN nicotine 10/06/24 mini lozenge cravings #72 ea cholecalciferol (vitamin D3) 25 25 mcg PO DAILY #90 caps 12/06/24 mcg (1,000 unit) capsule hydrochlorothiazide 25 mg tablet 25 mg PO DAILY #90 tabs 01/02/25 hydroxyzine HCl 25 mg tablet 25 mg PO BEDTIME #30 tabs 01/02/25 acetaminophen 500 mg tablet 500 - 1,000 mg (1 - 2 x 500 mg) PO 02/07/25 (Tylenol Extra Strength) Q6H PRN pain #30 tabs doxylamine succinate 25 mg tablet 25 mg PO BEDTIME PRN nausea and 02/07/25 (Unisom (doxylamine)) vomiting #30 tabs losartan 25 mg tablet 25 mg PO DAILY #30 tabs 03/05/25 oxycodone 5 mg tablet 5 mg PO Q6H PRN pain (scale score 03/09/25 7-10) #15 tabs prednisolone acetate 0.12 % eye 1 drp ophthalmic-Right TID 7 days 04/08/25 drops,suspension #10 mL Allergies Allergy/AdvReac Type Severity Reaction Status Date / Time No Known Allergies Allergy Verified 04/08/25 08:30 Review of Systems Review of Systems: Yes all other systems are reviewed and are negative PMFSH Past Medical History Attestation statement: The following information was validated with the patient. Source: old records reviewed and nursing notes reviewed Surgical History Hx laparoscopic cholecystectomy (03/09/25) Hx of wisdom tooth extraction Hx of section Family History Family History Mother Colon cancer FHx: colon cancer Father No problems noted. Son No problems noted. Daughter No problems noted. Maternal Grandfather FHx: colon cancer Social History Social History Household Members: Family Housing: Apartment Are you a primary cattle care worker to a significant other at home: Yes (2 Children) Alcohol intake: former Comment: counts correct Patient Tobacco Use Status: Never used Tobacco Tobacco use type: Cigarette Cigarette Packs Per Day: 0.25 Cigarettes Per Day: 3 Years Smoked: 15 Smoked in Last 30 Days: Yes e-Cigarette/Vaping Use: Former Use (THC Vape) Second Hand Smoke Exposure: Yes Use of substances other than those prescribed or required for medical reasons: Yes Substance Use Type: Marijuana Substance Use Frequency: Occasionally Advance Directives: No Advance Directives Information Provided: Yes Patient : No service: No Current occupational status: employed 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 Skin: Warm, dry, intact. No rashes or lesions. Head: Normocephalic, atraumatic. EENT: No periorbital swelling. No enophthalmous or exopthalmous. EOMs intact without pain or entrapment. PERRLA. Positive photophobia. No obvious foreign body or abrasion. Noted conjunctival injection to right eye. No hazy cornea. Visual acuity OD 20/100, OS 20/30. IOP OD 17, IOP OS 23. On tetracaine exam, no reuptake to suggest abrasion or fb. No ulceration. No dendritic lesions. Cardiac: Chest wall symmetric. RRR Lungs: Normal respiratory effort without accessory muscle use. CTA bilaterally? Ext: Upper and lower extremities atraumatic, without tenderness, deformity, swelling or erythema Neuro: AOx3. Normal speech. Ambulating with steady gait. Course Course Course Narrative: I have concern for uveitis. Prednisolone eye drops have been sent to the pharmacy. Advised follow up with Ophthalmology. Patient has remained stable throughout ED visit today. Discussed worrisome signs and symptoms and when to return to the ED. All questions answered at this time. Patient is agreeable with disposition and stable for discharge. Medications Administered Discontinued Medications Generic Name Dose Route Start Last Admin Trade Name Freq PRN Reason Stop Dose Admin Fluorescein Sodium 1 strip 04/08/25 09:33 04/08/25 10:11 Fluorescein Sodium Strip EYE-RIGHT 04/08/25 09:34 1 strip ONCE ONE Administration Ketorolac Tromethamine 30 mg 04/08/25 10:26 04/08/25 10:34 Ketorolac Tromethamine 30 Mg/Ml Vial IM 04/08/25 10:27 30 mg ONCE ONE Administration Tetracaine HCl 1 drop 04/08/25 09:33 04/08/25 10:11 Tetracaine Hcl/Pf 0.5% Oph Ludivina 4 Ml Drops EYE-RIGHT 04/08/25 09:34 1 drop ONCE ONE Administration Medical Decision Making Medical Decision Making [facility] Narrative: 35-year-old female who presents to the ED today for evaluation of right eye irritation that began on waking this morning. Patient is hypertensive, vitals otherwise WNL. On exam, No periorbital swelling. No enophthalmous or exopthalmous. EOMs intact without pain or entrapment. PERRLA. Positive photophobia. No obvious foreign body or abrasion. Noted conjunctival injection to right eye. No hazy cornea. Visual acuity OD 20/100, OS 20/30. IOP OD 17, IOP OS 23. On tetracaine exam, no reuptake to suggest abrasion or fb. No ulceration. No dendritic lesions. Differential includes bacterial versus viral conjunctivitis, uveitis, corneal abrasion, corneal ulceration. Unlikely preseptal or orbital cellulitis, acute angle closure glaucoma, iritis, keratitis, scleritis, uveitis, herpes ophthalmicus. Plan for visual acuity, IOP, fluorescein/tetracaine eval. Differential Diagnosis Differential Diagnoses: The differential diagnosis associated with the presentation includes as above. Admission/Observation not indicated. Prescription Management I considered prescription management with: Other (Prednisolone) Chronic Conditions Patient?s care impacted by: Hypertension Social Determinants Patient?s care significantly limited by Social Determinants of Health including: Other Social Determinant of Health Critical Care Time Critical Care Time Critical Care Time: No Discharge Plan Discharge Clinical Impression: Uveitis Patient Disposition: Home, Self-Care Instructions: Prednisolone (Into the eye) Additional Instructions: You were evaluated in the ED today for right eye irritation/ pain. Your intraoccular pressure is normal. There is no abrasion or foreign body. I suspect your symptoms are attributable to uveitis. I am sending a steroid eye drop to your pharmacy. Instill drops into your right eye 4 times daily. You need to follow up with your creative services producer this week. Call them Thursday morning to make an appointment. I have also provided you with a referral to [facility] Op[facility]. You may call them to establish care. They will not call you. Return with any new or worsening symptoms. In the case of an emergency call 911. Prescriptions: New prednisolone acetate 0.12 % drops,suspension 1 drp ophthalmic-Right TID 7 Days Qty: 10 0RF No Action hydroxyzine HCl 25 mg tablet 25 mg PO BEDTIME Qty: 30 1RF hydrochlorothiazide 25 mg tablet 25 mg PO DAILY Qty: 90 2RF losartan 25 mg tablet 25 mg PO DAILY Qty: 30 2RF acetaminophen [Tylenol Extra Strength] 500 mg tablet 500 - 1,000 mg PO Q6H PRN (Reason: pain) Qty: 30 0RF Unisom (doxylamine) 25 mg tablet 25 mg PO BEDTIME PRN (Reason: nausea and vomiting) Qty: 30 0RF oxycodone 5 mg tablet 5 mg PO Q6H PRN (Reason: pain (scale score 7-10)) Qty: 15 0RF Rx Instructions: Partial Fill upon patient request. nicotine (polacrilex) 4 mg mini lozenge 4 mg buccal Q8H PRN (Reason: nicotine cravings) Qty: 72 1RF amlodipine 10 mg tablet 10 mg PO DAILY Qty: 90 2RF cholecalciferol (vitamin D3) 25 mcg (1,000 unit) capsule 25 mcg PO DAILY Qty: 90 3RF Referrals: Physician,Destinee J [Primary Care Provider, Medical] Interventions: ED Discharge Assessment Last Done: 04/08/25 10:36 Discharge Date/Time: 04/08/25 10:37 Print Language: Taiwanese
[2025-04-08] MEDS: Tetracaine HCl/PF 0.5% Oph Sol 4 ML DROPS 1 DROP EYE-RIGHT (10:11)
[2025-04-08] MEDS: Fluorescein Sodium STRIP 1 STRIP EYE-RIGHT (10:11)
[2025-04-08 10:36] VITALS: BP 159/74; PULSE 94; RESP 20; TEMP 37; O2SAT 100
== END 2025-04-08 10:37 | disposition home or self-care (01) ==
PROVIDERS: Emergency Provider Emergency Medicine
DX: H20.9 Unspecified iridocyclitis (principal)
CPT/HCPCS: 96372; 99284; J1885

== ENCOUNTER 2025-04-27 12:59 | Outpatient (AMB) | payer OTHER, SELFPAY ==
--- NOTE | 2025-04-27 13:02 | MHC.OFFVIS ---
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: Rubber Goods Inspector Present (Yamilet) Accompanied by: Self / Same As Patient Allergies No Known Allergies Allergy (Verified 04/27/25 13:09) Medication List - Last Reconciled 04/27/25 by Tiara Mondragon CNM acetaminophen (Tylenol Extra Strength) 500 - 1,000 mg (1 - 2 x 500 mg) PO Q6H PRN amlodipine 10 mg PO DAILY cholecalciferol (vitamin D3) 25 mcg PO DAILY hydrochlorothiazide 25 mg PO DAILY hydroxyzine HCl 25 mg PO BEDTIME losartan 25 mg PO DAILY nicotine (polacrilex) 4 mg buccal Q8H PRN Is last menstrual period known: Yes Last menstrual period: 04/09/25 Post menopausal: No Patient : No HPI HPI New patient annual: Details: 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 She has high blood pressure she is on 2 medications for that that she takes in the morning and she did take hers this morning her blood pressure is high she smokes about a 3rd of a pack a cigarettes which she says is down a little bit from what ever she used to smoke before. She has nicotine gum 2 try but she has not been consistent with it she says it is helpful for her stress. She has 2 children 9 in 16. She does not want to have a stroke or heart disease or lung cancer and her 9-year-old daughter tells her all the time to quit but she has not been able To yet. She wants to talk about control she normally uses condoms but she did have an unplanned this January and [facility] she has had for medical abortions and her 2 children 1 delivered [facility] in 1 at [facility] her 1st child came at 34 weeks so the 2nd baby was followed closely but she had no problems. She does have a history of a Bartholin's cyst that has swollen up and been bothersome at least 3 or 4 times. She can tell when it is getting bigger again it is not bothering her right now she takes soaks with Epsom salts and now she has figured out how to manage it it has never needed to be lanced.. [facility] Medical History (Updated 04/27/25 @ 13:59 by Tiara Mondragon CNM) Bartholin cyst Hypertension Surgical History Hx laparoscopic cholecystectomy (03/09/25) Hx of wisdom tooth extraction Hx of section Family History Mother Colon cancer FHx: colon cancer Father No problems noted. Son No problems noted. Daughter No problems noted. 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 [employer] Cognitive needs: No Hearing needs: No Vision needs: Yes (Glasses) Female Reproductive History Menstrual Age of Menarche: 14 Duration of menses: 3-5 days Date of last menstrual period: 04/09/25 control method: none Total pregnancies: 6 Full term: 2 Ab induced: 4 History of abnormal pap smear: No Physical Exam Vital Signs: Last Vital Signs BP 150/98 H 04/27/25 13:10 BMI result Body Mass Index 30.0 Const Other: Patient is a smoker General: healthy appearing, comfortable, no acute distress, well developed and alert Nutritional Appearance: average body habitus Orientation/consciousness: patient oriented x3 Limitations: no limitations HEENT Head: Yes normocephalic Neck Neck: Yes normal visual inspection Chest Chest palpation & inspection: normal inspection of the chest Breast/axilla inspection: normal inspection of the breasts and normal inspection of the axillae Breast/axilla palpation: normal palpation of the breasts and normal palpation of the axillae Resp Effort & Inspection: normal respiratory effort GI Inspection: Yes normal to inspection, No Abdominal wall edema and No distended Palpation (GI): Soft to palpation and nontender Other: External exam within normal limits no evidence at the moment of a swollen Bartholin's cyst. Vagina is pink and moist there is a yellowish whitish discharge periods cervix is multiparous pink smooth healthy appearing long close thick mobile nontender uterus on enlarged mobile nontender adnexa nontender good muscle tone with Kegel. Pap smear done as well as testing for gonorrhea chlamydia trichomoniasis bacterial vaginosis and yeast.. General: Yes bladder normal to palpation External Female Exam: normal external appearance and normal appearance of the urethra Speculum Exam - Vagina: normal appearance of the vagina, normal palpation and normal vaginal discharge Speculum Exam - Cervix: normal appearance of the cervix, normal palpation and nontender Bimanual exam- vagina & uterus: normal bimanual exam, normal palpation, uterine size normal, bladder normal to palpation, consistency normal, normal palpation, uterine mobility normal, uterine shape normal, No Cervical tenderness present, non-tender and no cervical motion tenderness Bimanual Exam- Adnexa, other: normal adnexae, no masses, normal and No adnexal tenderness Neuro General: patient oriented x3 Assessment & Plan Assessment & Plan (1) Cervical cancer screening: Comment: [facility] in the past Code(s): Z12.4 - Encounter for screening for malignant neoplasm of cervix Category: Medical (2) Hypertension: Code(s): I10 - Essential (primary) hypertension Category: Medical (3) Obesity (BMI 30-39.9): Code(s): E66.9 - Obesity, unspecified Category: Medical (4) S/P laparoscopic cholecystectomy: Code(s): Z90.49 - Acquired absence of other specified parts of digestive tract Category: Surgical (5) BCP ( control pills) initiation: Comment: Patient is not a candidate for combination OCPs secondary to smoking and hypertension. We will trial on POPs and recheck in 2 to three-month Code(s): Z30.011 - Encounter for initial prescription of contraceptive pills Category: Medical (6) Bartholin cyst: Comment: Patient is well-versed in self-care it is not currently an issue discussed emergency or urgent care if it becomes a problem. Code(s): N75.0 - Cyst of Bartholin's gland Category: Medical (7) Tobacco use disorder: Code(s): F17.200 - Nicotine dependence, unspecified, uncomplicated Category: Medical (8) Cholelithiasis: Code(s): K80.20 - Calculus of gallbladder without cholecystitis without obstruction Category: Medical Qualifiers: Cholelithiasis location: gallbladder Cholecystitis presence: without cholecystitis Biliary obstruction: without biliary obstruction Qualified Code(s): K80.20 - Calculus of gallbladder without cholecystitis without obstruction Plan Discussed self-care urged consideration to smoking cessation. She is aware it is not the best. She wants something for control that is a little bit more reliable but will does intend to continue to use condoms. Suggested trying progestin only pills discussed risks with any method of control but would not recommend a at this time with her uncontrolled high blood pressure and smoking. Also discussed age related risks with . If she did get she would need to be seen at [facility] if she were continuing the . She is aware of how to take care of the Bartholin's cyst and she is doing a good job with That. I recommend starting the pills at the beginning of the next period within the 1st 3 days and we will see her in 2-3 months to see how she is doing with the pills and her blood pressure. And the smoking. -----Discussed in this visit the following: healthy balanced diet, regular and consistent exercise, getting recommended health screens, doing the best she can for her particular health concerns, kegel exercises, pap smear screening and followup recommendations, mammography screening and SBE, normal changes in cycles in her life stage--- . Medications: New norethindrone (contraceptive) 0.35 mg PO DAILY 84 tabs 1RF Coding Level of Care Code New Pt Prev Care 18-39yr([id number] Diagnoses Cervical cancer screening Z12.4 Hypertension I10 Obesity (BMI 30-39.9) E66.9 S/P laparoscopic cholecystectomy Z90.49 BCP ( control pills) initiation Z30.011 Bartholin cyst N75.0 Tobacco use disorder F17.200 Calculus of gallbladder without cholecystitis without obstruction K80.20 Cholelithiasis location: gallbladder Cholecystitis presence: without cholecystitis Biliary obstruction: without biliary obstruction
[2025-04-27 13:10] VITALS: BP 150/98
== END 2025-04-27 15:38 | disposition home or self-care (01) ==
LOC: HO.HWSM 12:59
PROVIDERS: Visit Provider Advanced Practice Midwife
DX: Z01.419 Encounter for gynecological examination (general) (routine) without abnormal findings (principal); I10 Essential (primary) hypertension; N75.0 Cyst of Bartholin's gland; E66.9 Obesity, unspecified; Z90.49 Acquired absence of other specified parts of digestive tract; Z30.011 Encounter for initial prescription of contraceptive pills; F17.200 Nicotine dependence, unspecified, uncomplicated; K80.20 Calculus of gallbladder without cholecystitis without obstruction
CPT/HCPCS: 99385; 99459

== ENCOUNTER 2025-04-27 12:59 | Outpatient (REF) | payer OTHER, SELFPAY ==
[2025-04-28 04:10] LABS: Bacterial Vaginosis PCR POSITIVE (Negative); Candida Group PCR NOT DETECTED (Not Detect); Candida glab krusei PCR NOT DETECTED (Not Detect); Trichomonas vaginalis PCR NOT DETECTED (Not Detect)
[2025-04-28 04:41] LABS: CT PCR NOT DETECTED (Not Detect.); NG PCR NOT DETECTED (Not Detect.)
== END 2025-04-27 13:00 | disposition home or self-care (01) ==
LOC: HO.LNP 12:59
PROVIDERS: Visit Provider Advanced Practice Midwife
DX: Z12.4 Encounter for screening for malignant neoplasm of cervix (principal); I10 Essential (primary) hypertension; N75.0 Cyst of Bartholin's gland; F17.200 Nicotine dependence, unspecified, uncomplicated; K80.20 Calculus of gallbladder without cholecystitis without obstruction; E66.9 Obesity, unspecified; Z68.30 Body mass index [BMI] 30.0-30.9, adult; Z90.49 Acquired absence of other specified parts of digestive tract; Z30.011 Encounter for initial prescription of contraceptive pills; Z20.2 Contact with and (suspected) exposure to infections with a predominantly sexual mode of transmission
CPT/HCPCS: 81515; 87491; 87591; 87626; 88175

== ENCOUNTER 2025-05-08 14:56 | Outpatient (AMB) | payer OTHER, SELFPAY ==
--- NOTE | 2025-05-08 14:58 | MHC.PC.OV ---
Vital Signs 05/08/25 14:59 Height 5 ft 6 in Weight 187 lb 8 oz BMI 30.3 BP 138/78 Blood Pressure Location Rt brachial Position Sitting Pulse 87 Pulse Source Pulse Oximeter Temp 98.6 F Temp Source Temporal Artery Scan Pulse Oximetry (%) 99 Oxygen Delivery Method Room Air Intake Visit Reasons: annual Intake Note: Patient is here to follow up on HTN, Blood work results. 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 Services Director: Not Required per policy Accompanied by: Self / Same As Patient Allergies No Known Allergies Allergy (Verified 05/08/25 15:19) Medication List - Last Reconciled 05/08/25 by Jelena Fletcher PA-C acetaminophen (Tylenol Extra Strength) 500 - 1,000 mg (1 - 2 x 500 mg) PO Q6H PRN amlodipine 10 mg PO DAILY cholecalciferol (vitamin D3) 25 mcg PO DAILY hydrochlorothiazide 25 mg PO DAILY hydroxyzine HCl 25 mg PO BEDTIME losartan 25 mg PO DAILY nicotine (polacrilex) 4 mg buccal Q8H PRN norethindrone (contraceptive) 0.35 mg PO DAILY Tobacco use date assessed: 12/06/24 Dental Screening Dental Screen Date: 10/06/24 Did you have a dental visit in the last 12 months?: Yes Did you have a dental problem in the last 6 months where you did not have access to dental care?: No Was dental information given to patient?: Patient has dentist HPI annual HPI Details 35 year old female with past medical history of hypertension, tobacco use disorder, anxiety, depression, insomnia and obesity last seen 11/2024 coming in for annual exam. Patient had annual well women exam 04/2025. Patient was seen by general surgery 02/2025 and underwent lap xavi. Presenting for an annual wellness visit. Post-surgery, she has been doing well with complete resolution of her abdominal pain, although she experiences diarrhea if she eats greasy foods. She has another ER visit for eye pain with sun exposure, which has since resolved without treatment, as she did not fill the expensive prescription. Vision has since resolved and she is working on getting appointment with eye doctor. Her blood pressure has been variable, with recent readings around 130-140/85-89 mmHg. The patient continues to smoke cigarettes and uses nicotine lozenges intermittently. She was prescribed a progestin-only control pill but has not started it yet. She has made dietary changes since her surgery, avoiding fried foods, and her weight has stabilized at 186 lbs after some loss. 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 Son No problems noted. Daughter No problems noted. 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 1. Little interest or pleasure in doing things: not at all 2. Feeling down, depressed, or hopeless: not at all 3. Trouble falling or staying asleep, or sleeping too much: not at all 4. Feeling tired or having little energy: not at all 5. Poor appetite or overeating: not at all 6. Feeling bad about yourself - or that you are a failure or have let yourself or your family down: not at all 7. Trouble concentrating on things, such as reading the newspaper or watching television: not at all 8. Moving or speaking so slowly that other people could have noticed. Or the opposite - being so fidgety or restless that you have been moving around a lot more than usual: not at all 9. Thoughts that you would be better off or of hurting yourself in some way: not at all Total score: 0 Depression Screening Interpretation: Negative Depression Screening Done: Yes Source: Developed by Drs. Yobany Corbin, Melisa Damian, Anoop Reardon and colleagues, with an educational nelly from [employer]. Thrive Questionnaire Date Thrive assessed: 12/06/24 I am a: Patient What is your living situation today?: I have a steady place to live Within the past 12 months, did the food you bought not last and you didn't have the money to get more?: Never true Within the past 12 months, did you worry whether your food would run out before you got money to buy more?: I choose not to answer this question Do you have trouble paying for medicines?: No Do you have trouble getting transportation to medical appointments?: No Do you have trouble paying your heating and electricity bill?: No Do you have trouble taking care of your child, family member or friend?: No Do you have trouble with day-to-day activities such as bathing, preparing meals, shopping, managing finances, etc.?: No Are you currently unemployed and looking for a job?: No Are you interested in more education?: No Please select the resources that you would like help with: None Currently or been in a relationship where the following occur: No concerns reported THRIVE Score: 0 AUDIT C Alcohol Use Questionnaire (AUDIT-C) 1. How often do you have a drink containing alcohol?: 2-4 times a month 2. How many drinks containing alcohol do you have on a typical day when you are drinking?: 3 or 4 3. How often do you have six or more drinks on one occasion?: Monthly Total Score: 5 Score Reviewed/Action Taken: Yes KERRI-7 AMB Questionnaire KERRI-7 Date KERRI - 7 assessed: 10/06/24 Feeling nervous, anxious, or on edge: 0 = Not at all Not being able to stop or control worryin = Not at all Worrying too much about different things: 0 = Not at all Trouble relaxin = Not at all Being so restless that it is hard to sit still: 0 = Not at all Becoming easily annoyed or irritable: 0 = Not at all Feeling afraid as if something awful might happen: 0 = Not at all Total KERRI-7 score (0-4 normal; 5-9 mild; 10-14 moderate; 15-21 severe): 0 Source: Developed by Drs. Yobany Corbin, Melisa Damian, Anoop Reardon and colleagues, with an educational nelly from [employer]. Review of Systems Const Denies body aches, Denies fatigue, Denies fever(s), Denies frequent falls, Denies headache(s) and Denies weakness Eyes Reports no additional complaints and Denies change in vision ENT Denies dysphagia, Denies dizziness, Denies facial pain, Denies headache(s), Denies nasal congestion and Denies odynophagia Card Denies chest pain, Denies syncope, Denies irregular heart rhythm, Denies leg edema, Denies lightheadedness and Denies dyspnea Resp Denies cough and Denies dyspnea GI Denies constipation, Denies dysphagia, Denies dyspepsia, Reports diarrhea (s/p cholecystectomy ), Denies nausea, Denies odynophagia and Denies vomiting Denies urinary frequency, Denies dysuria, Denies urinary hesitancy and Denies urinary urgency Musc Denies back pain and Denies myalgias Skin/Breast Reports system reviewed and no additional complaints, except as documented Neuro Denies dizziness, Denies syncope, Denies frequent falls, Denies headache(s) and Denies weakness Psych Reports no additional complaints Endo Denies fatigue Physical exam (Primary Care) Vital Signs: Last Vital Signs Temp 98.6 F 05/08/25 14:59 Pulse 87 05/08/25 14:59 BP 138/78 05/08/25 14:59 Pulse Ox 99 05/08/25 14:59 Oxygen Delivery Method Room Air 05/08/25 14:59 BMI result Body Mass Index 30.3 Tobacco/Smoking Status: Tobacco use Status Tobacco use date assessed 12/06/24 05/08/25 15:07 Patient Tobacco Use Status Never used Tobacco 05/08/25 15:07 Tobacco use type Cigarette 05/08/25 15:07 e-Cigarette/Vaping Use Former Use (THC Vape) 05/08/25 15:07 PHQ-9: PHQ-9 Score PHQ-9: Total score 0 05/08/25 15:19 Depression Screening Interpretation: Negative Thrive Assessment: Date of Thrive Assessment Date Thrive assessed 12/06/24 05/08/25 15:07 Currently or been in a relationship where the following occur: No concerns reported Const General: cooperative, healthy appearing, comfortable and no acute distress Orientation/consciousness: patient oriented x3 HENMT Head: Yes normocephalic Ears: hearing grossly normal bilaterally, external ears normal, TM's normal bilaterally and EAC's normal General nose exam: Normal external nose present Face and sinus: Yes normal facial exam and Yes sinuses nontender Mouth: Normal oral and palatal mucosa present and tongue normal Throat: Yes posterior oropharynx normal Eyes General: appearance normal, both eyes and all related structures Conjunctivae: conjunctivae normal Pupils: Equal, round and reactive pupils present EOM: EOMs intact bilaterally and No Nystagmus present Neck Neck: Yes normal visual inspection, Yes full ROM and Yes no lymphadenopathy Chest Chest palpation & inspection: normal inspection of the chest Resp Effort & Inspection: normal respiratory effort Auscultation: clear to auscultation bilaterally, no crackles, no rales, no rhonchi, no wheezes and breath sounds present Cardio Rate: regular rate Rhythm: regular rhythm Peripheral pulses: radial pulses present and dorsalis pedis present GI Inspection: Yes normal to inspection and No Abdominal wall edema Palpation (GI): Soft to palpation, not firm and nontender Auscultation: normal bowel sounds Rectal Exam - Female: deferred General: Yes no CVA tenderness Back/Spine/Pelvis Back: no CVA tenderness Skin General skin exam: no rashes or lesions noted Neuro General: patient oriented x3 Cranial nerves: Yes Equal, round and reactive pupils present, Yes Midline tongue present, Yes Ability to bilaterally elevate shoulders present and No Nystagmus present Gait exam (Neuro): Normal gait present Extrem General: Yes normal to inspection, Yes full ROM, No no pedal edema and No edema Psych Speech and movement: Normal speech and movement present Affect: normal affect Insight: Good insight present (Psych) Judgement: Good judgement present (Psych) Coding Level of Care Code Est Pt Prev Care [id number]) Diagnoses Annual physical exam Z00.00 Depression F32.A Anxiety F41.9 Hypertension I10 Obesity (BMI 30-39.9) E66.9 Vitamin D deficiency E55.9 S/P laparoscopic cholecystectomy Z90.49 Cervical cancer screening Z12.4 Bartholin cyst N75.0 Insomnia G47.00 Tobacco use disorder F17.200 Assessment & Plan Assessment & Plan (1) Annual physical exam: Code(s): Z00.00 - Encounter for general adult medical examination without abnormal findings Category: Medical Plan: The patient's health maintenance is up to date regarding her Pap smear and tetanus vaccine, and she has received a flu shot. She is due for repeat thyroid function tests, and labs have been ordered. The patient is advised to schedule a six-month follow-up and her next annual appointment. (2) Depression: Code(s): F32.A - Depression, unspecified Category: Medical Plan: Has improved and feels good without medication or counseling. (3) Anxiety: Code(s): F41.9 - Anxiety disorder, unspecified Category: Medical Plan: See above (4) Hypertension: Code(s): I10 - Essential (primary) hypertension Category: Medical Plan: Continue on current blood pressure medication. Avoid salt intake and encourage healthy diet and regular exercise. (5) Obesity (BMI 30-39.9): Code(s): E66.9 - Obesity, unspecified Category: Medical Plan: Healthy diet and regular exercise is encouraged. (6) Vitamin D deficiency: Code(s): E55.9 - Vitamin D deficiency, unspecified Category: Medical Plan: Recommend [id number] supplementation. (7) S/P laparoscopic cholecystectomy: Code(s): Z90.49 - Acquired absence of other specified parts of digestive tract Category: Surgical Plan: Doing well post op. Working on dietary changes. (8) Cervical cancer screening: Comment: Pap smear w/ [facility] in the past; 04/27/2025 Pap is negative with negative HPV. Code(s): Z12.4 - Encounter for screening for malignant neoplasm of cervix Category: Medical Plan: UTD with gynecology. (9) Bartholin cyst: Comment: Patient is well-versed in self-care it is not currently an issue discussed emergency or urgent care if it becomes a problem. 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 (10) Insomnia: Code(s): G47.00 - Insomnia, unspecified Category: Medical Plan: Patient having difficulty sleeping she has been using hydroxyzine 25 mg at bedtime with good benefit. (11) Tobacco use disorder: Code(s): F17.200 - Nicotine dependence, unspecified, uncomplicated Category: Medical Plan: Smoking cigarettes and the use of tobacco can be harmful. We discussed the importance of stopping and options to aid in smoking cessation. Prescription sent for nicotine lozenges at last visit and patient has significantly decreased the amount she has been smoking. Plan This note was constructed using voice recognition software. While every effort has been made to ensure accuracy and heat treat supervisor, still areas may have been included sometimes these areas may affect the content or meeting of the given symptoms. Total time spent caring for the patient today was 30 minutes. This includes time spent before the visit reviewing the chart, time spent during the visit, and time spent after the visit and documentation. Patient was informed and verbally consented to the use of an ambient scribe for clinic note documentation during this visit. Medications: Discontinued acetaminophen (Tylenol Extra Strength) Discontinued Reason: Patient Completed Course 500 - 1,000 mg (1 - 2 x 500 mg) PO Q6H PRN 30 tabs 0RF pain
[2025-05-08 14:59] VITALS: BP 138/78; PULSE 87; TEMP 37; O2SAT 99; BMI 30.3
== END 2025-05-08 15:39 | disposition home or self-care (01) ==
LOC: HO.HMCH 14:57
DX: Z00.00 Encounter for general adult medical examination without abnormal findings (principal); F32.A Depression, unspecified; E66.9 Obesity, unspecified; Z68.30 Body mass index [BMI] 30.0-30.9, adult; F41.9 Anxiety disorder, unspecified; I10 Essential (primary) hypertension; E55.9 Vitamin D deficiency, unspecified; Z90.49 Acquired absence of other specified parts of digestive tract; N75.0 Cyst of Bartholin's gland; G47.00 Insomnia, unspecified; F17.200 Nicotine dependence, unspecified, uncomplicated